=== PATIENT | male | born 1985 | race American Indian/Alaskan Native ===

== ENCOUNTER 2018-05-12 03:28 | Inpatient (IN) | payer MEDICAID ==
[2018-05-08 22:12] VITALS: BMI 29.0
[2018-05-12 09:58] LABS: BASO # 0.01 K/mm3 (0.0-2.0); BASO % 0.1 % (0.0-3.0); EOS # 0.1 (0.0-0.7); EOS % 1.1 % (1.5-5.0); GRAN # 6.64 (1.4-6.5); GRAN % 71.6 % (50.0-68.0); HEMOGLOBIN 13.5 g/dL (14.0-18.0); LYMPH % 21.5 % (22.0-35.0); MEAN CELL VOLUME 75.6 fl (80.0-105.0); MEAN CORPUSCULAR HEMOGLOBIN 25.2 pg (25.0-35.0); MEAN CORPUSCULAR HGB CONC 33.3 g/dl (31.0-37.0); MEAN PLATELET VOLUME 11.6 fl (7.0-11.0); MONO # 0.5 (0.1-0.6); MONO % 5.7 % (1.0-6.0); RBC 5.36 10^6/uL (3.5-6.1); RED CELL DISTRIBUTION WIDTH 13.7 % (11.5-14.5); WHITE BLOOD COUNT 9.3 10^3/ul (4.5-11.0)
[2018-05-12 10:02] LABS: BARBITURATES, UR NEGATIVE (NEGATIVE); BENZODIAZEPINES, UR NEGATIVE (NEGATIVE); OPIATES, UR NEGATIVE (NEGATIVE)
[2018-05-12 10:03] LABS: PHENCYCLIDINE, UR NEGATIVE (NEGATIVE)
[2018-05-12 10:04] LABS: BLOOD UREA NITROGEN 9 mg/dL (7-21); GFR NON-AFRICAN AMERICAN > 60
[2018-05-12 10:05] LABS: ALB/GLOB RATIO 1.1 (1.1-1.8); ALBUMIN 4.5 g/dL (3.0-4.8); ALT/SGPT 23 U/L (7-56); AST/SGOT 33 U/L (17-59); CALCIUM 9.5 mg/dL (8.4-10.5)
[2018-05-12 10:06] LABS: PH,URINE 6.5 (4.7-8.0); URINE APPEARANCE CLEAR (CLEAR); URINE BILIRUBIN NEGATIVE (NEGATIVE); URINE BLOOD NEGATIVE (NEGATIVE); URINE COLOR YELLOW (YELLOW); URINE GLUCOSE (UA) NEGATIVE (NEGATIVE); URINE LEUKOCYTE ESTERASE NEGATIVE Leu/uL (NEGATIVE); URINE PROTEIN NEGATIVE mg/dL (<30 mg/dL); URINE UROBILINOGEN 0.2 E.U./dL (<1 E.U./dL)
[2018-05-12] MEDS ORDERED: Magnesium Hydroxide Susp 30 ml UD PO PRN (19:01)
[2018-05-12] MEDS ORDERED: Alum-Mag Hydrox-Simethicone Susp (30 mL) PO PRN (19:01)
--- NOTE | 2018-05-12 19:06 | PCM.BM ---
<Verenice Titus - Last Filed: 05/12/18 19:03> Treatment Plan Problems - Problems identified on initial assessmt AUDITORY HALLUCINATION Date Initiated: 05/12/18 Time Initiated: 19:00 Assessment reference: NA Status: Active Priority: 1 SOCIAL ISOLATION Date Initiated: 05/12/18 Time Initiated: 19:00 Assessment reference: NA Status: Active Priority: 2 INEFFECTIVE INDV COPING Date Initiated: 05/12/18 Time Initiated: 19:00 Assessment reference: NA Status: Active Priority: 3 SELF CARE DEFICIT Date Initiated: 05/12/18 Time Initiated: 19:00 Assessment reference: NA Status: Active Priority: 4 Treatment assets and liabiliti Patient Assests: cooperative, ADL independent, physically healthy, good support system, cognitively intact Patient Liabilities: financial problems - Milieu Protocol Maintain good personal hygiene: daily Encourage regular showers, daily Remind patient to perform daily oral care, daily Assist patient to perform ADL's Maintain personal safety: every shift Educate patient to report safety concerns to staff, every shift Monitor environment for contraband/sharps Medication safety: Monitor for expected outcome, potential side effects: every shift, Assess barriers to learning: every shift, Assess readiness for medication education: every shift Discharge/Continuing Care - Education Needs Education Needs: Patient Medication, Patient Diagnosis/Disease Process, Patient Coping Skills, Patient Community resources, Patient Activities of Daily Living, Patient Nutrition, Patient Health Practices/Safety, Patient Personal Hygiene/Grooming, Patient Aftercare Safety Plan - Discharge Discharge Criteria: Tolerates medication w/o severe side effects, Free of paranoid thoughts, Normal sleep pattern, Ability to care for self, Reduction of target symptoms Discharge to:: Home <Jada Espino - Last Filed: 05/13/18 16:27> - Diagnosis (1) Unspecified psychosis Status: Acute Interventions: 05/13/18 16:28 Psychoeducation/psychotherapy Psychopharmacology/adjustment of medications as needed/ monitoring possible side effects Evaluate pt on daily basis Compliance with medications and follow up appointments Long acting medication if pt is noncompliant with pill form Suicide and homicide risk assessment and prevention, coping strategies, safety plan Relapse prevention Reduction of symptoms Improve functional status Possible assertive community treatment Cognitive behavioral therapy Family involvement Possible social skill training as outpatient (2) Bipolar 1 disorder Status: Acute Interventions: 05/13/18 16:28 Psychoeducation Psychopharmacology/adjustment of medications as needed/ monitoring possible side effects Monitor blood level of mood stabilizers Evaluate pt on daily basis Compliance with medications and follow up appointments Suicide and homicide risk assessment and prevention, coping strategies, safety plan Relapse prevention Reduction of symptoms Improve functional status Family involvement As outpatient: cognitive behavioral therapy <Deanne Knowles Y - Last Filed: 05/13/18 17:03> Family Contact Family involvement: Family/SO is involved Family contact: Patient agrees to contact Family contact name: Meri Fuentes(aunt) Family contacted how many times per week?: 2
[2018-05-12] MEDS: Divalproex 250 mg DR (BID formulation) PO SCH (19:14)
[2018-05-13 07:00] VITALS: RESP 20
[2018-05-13 08:00] LABS: HDL CHOLESTEROL 60 mg/dL (29-60)
[2018-05-13 08:11] LABS: LDL CHOLESTEROL 80 mg/dL (0-129)
[2018-05-13 08:16] LABS: FREE T4 1.37 ng/dL (0.78-2.19)
[2018-05-13] MEDS: Divalproex 250 mg DR (BID formulation) PO SCH ×2 (08:17→17:26)
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
[2018-05-13] MEDS: Oxycodone/Acetaminophen 5/325 mg Tab PO PRN ×2 (11:28→17:30)
--- NOTE | 2018-05-13 16:14 | CARD ---
APPROVED REPORT Date of service: 05/12/2018 EKG Measurement Heart [id number] <Conclusion> Sinus bradycardia
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
--- NOTE | 2018-05-13 17:12 | CP.PCM.PCO ---
<Tracie Sinclair - Last Filed: 05/13/18 17:09> Addendum Addendum: 05/13/18 17:09 Patient's chart reviewed Xray on 05-08 shows normal left foot radiographs Patient treated with Kelfex and Ancef Patient's laceration was checked with no oozing or drainage noted Podiatry Consult was added Patient on percocet with special shoe for laceration injury Full Consult note will be done in the AM <Waqar Jesus - Last Filed: 05/14/18 07:39> Attending/Attestation - Attestation I have personally seen and examined this patient.: Yes I have fully participated in the care of the patient.: Yes I have reviewed all pertinent clinical information: Yes
[2018-05-14] MEDS: Divalproex 250 mg DR (BID formulation) PO SCH ×2 (08:39→15:53)
[2018-05-14] MEDS: Oxycodone/Acetaminophen 5/325 mg Tab PO PRN (08:45)
--- NOTE | 2018-05-14 08:46 | CT ---
Date of service: 05/14/2018 PROCEDURE: CT HEAD WITHOUT CONTRAST. HISTORY: s/p fall COMPARISON: None available. TECHNIQUE: Axial computed tomography images were obtained through the head/brain without intravenous contrast. Radiation dose: Total exam DLP = 840.78 mGy-cm. This CT exam was performed using one or more of the following dose reduction techniques: Automated exposure control, adjustment of the mA and/or kV according to patient size, and/or use of iterative reconstruction technique. FINDINGS: HEMORRHAGE: No intracranial hemorrhage. BRAIN: Normal marshall-white matter differentiation and density are appreciated throughout the cerebrum and cerebellum with the brainstem appearing unremarkable as well. There is no mass effect. There is no suspicious extra-axial fluid collection and the midline brain anatomy appears diffusely unremarkable. VENTRICLES: Unremarkable. No hydrocephalus. CALVARIUM: No destructive bony lesion or displaced fracture identified including through the skullbase. PARANASAL SINUSES: Unremarkable as visualized. No significant inflammatory changes. MASTOID AIR CELLS: Unremarkable as visualized. No inflammatory changes. OTHER FINDINGS: None. IMPRESSION: Unremarkable noncontrast head CT.
--- NOTE | 2018-05-14 12:45 | CP.PCM.PN ---
Subjective - Date & Time of Evaluation Date of Evaluation: 05/14/18 Time of Evaluation: 12:42 - Subjective Subjective: Samia Dubon, PGY2, Neurology Progress Note for Dr Theodore: Patient seen and examined at bedside. No acute events overnight. Patient reports mild headache this AM. Denies nausea, vomiting, gait disturbances, blurry vision. Objective - Vital Signs/Intake and Output Vital Signs (last 24 hours): Temp Pulse Resp BP Pulse Ox 97.5 F L 52 L 20 125/72 05/14/18 06:45 05/14/18 06:45 05/14/18 06:45 05/14/18 06:45 - Medications Medications: Current Medications Al Hydrox/Mg Hydrox/Simethicone (Maalox Plus 30 Ml) 30 ml PO DAILY PRN PRN Reason: Upset Stomach Cephalexin Monohydrate (Keflex) 500 mg PO QID [facility]; Protocol Last Admin: 05/14/18 08:40 Dose: 500 mg Divalproex Sodium (Depakote Dr (*Bid*)) 250 mg PO BID [facility]; Protocol Last Admin: 05/14/18 08:39 Dose: 250 mg Lorazepam (Ativan) 2 mg IM Q6H PRN; Protocol PRN Reason: Anxiety Lorazepam (Ativan) 0.5 mg PO BID [facility]; Protocol Last Admin: 05/14/18 08:39 Dose: 0.5 mg Lorazepam (Ativan) 0.5 mg PO HS [facility]; Protocol Last Admin: 05/13/18 21:40 Dose: 0.5 mg Magnesium Hydroxide (Milk Of Magnesia) 30 ml PO DAILY PRN PRN Reason: Constipation Oxycodone/Acetaminophen (Percocet 5/325 Mg Tab) 1 tab PO Q6H PRN PRN Reason: Pain, severe (8-10) Stop: 05/16/18 10:11 Last Admin: 05/14/18 08:45 Dose: 1 tab Risperidone (Risperdal Tab) 0.5 mg PO BID [facility]; Protocol Last Admin: 05/14/18 08:39 Dose: 0.5 mg Tramadol HCl (Ultram) 50 mg PO BID PRN PRN Reason: severe pain 9/10 Last Admin: 05/14/18 10:43 Dose: 50 mg Zaleplon (Sonata) 5 mg PO HS PRN PRN Reason: Insomnia Last Admin: 05/13/18 21:39 Dose: 5 mg Ziprasidone (Geodon Cap) 20 mg PO DAILY PRN; Protocol PRN Reason: Agitation - Labs Labs: 05/12/18 04:45 05/12/18 04:45 - Additional Findings Additional findings: - Constitutional Appears: Non-toxic, No Acute Distress - Head Exam Head Exam: ATRAUMATIC, NORMOCEPHALIC - Eye Exam Eye Exam: EOMI, Normal appearance, PERRL. absent: Conjunctival injection, Nystagmus, Scleral icterus Pupil Exam: NORMAL ACCOMODATION, PERRL. absent: Fixed, Irregular, Miosis, Mydriatic, Unequal - ENT Exam ENT Exam: Mucous Membranes Moist - Neck Exam Neck exam: Positive for: Full Rom - Respiratory Exam Respiratory Exam: Clear to Auscultation Bilateral, NORMAL BREATHING PATTERN. absent: Accessory Muscle Use, Chest Wall Tenderness, Rales, Rhonchi, Wheezes, Respiratory Distress - Cardiovascular Exam Cardiovascular Exam: RRR, +S1, +S2. absent: Systolic Murmur - GI/Abdominal Exam GI & Abdominal Exam: Normal Bowel Sounds, Rigid, Soft. absent: Distended, Mass, Organomegaly, Rebound, Tenderness - Extremities Exam Extremities exam: Positive for: normal inspection. Negative for: calf tenderness, pedal edema Additional comments: left foot covered in dressing, c/d/i - patient had a laceration there few days ago, followed by podiatry. - Back Exam Back exam: NORMAL INSPECTION - Neurological Exam Neurological exam: Alert, CN II-XII Intact, Normal Gait, Oriented x3, Reflexes Normal Additional comments: finger to nose test smooth b/l, no dysmetria noted, heel to gaffney test normal, rapid alternating movements normal. - Psychiatric Exam Psychiatric exam: Normal Affect - Skin Skin Exam: Dry, Normal Color, Warm Assessment and Plan - Assessment and Plan (Free Text) Assessment: 32 year old male with PMH asthma, presents for headaches and auditory lewis ucinations for past 3 months s/p trauma: - likely post concussion syndrome, r/o seizures - Head CT negative. - f/u EEG - Toradol prn pain - Concussion protocol: get plenty of rest, avoid TV/visual stimulation - c/w Depakote - c/w psych management Discussed case with attending, Dr Theodore.
[2018-05-14] MEDS: Fluticasone Nasal 50 mcg/Spray NS SCH (15:52)
[2018-05-14] MEDS ORDERED: Albuterol HFA 90 mcg/actuation (8 g) IH PRN (16:22)
--- NOTE | 2018-05-14 16:50 | PCM.PYCHPN ---
Psychiatric Progress Note - Psychiatric Progress Note Patient seen today, length of contact: 30 minutes Patient Chief Complaint: "I feeling better" Problems Identified/Issues Discussed: Suicide/ homicide prevention, past psychiatric h/o, current psychiatric symptoms, medical problems, risk/benefits and alternatives of medications, medications compliance, coping strategies, substance abuse h/o, relapse prevention, importance of follow up with psychiatrist and therapist, discharge plan. Medical Problems: see HPI Diagnostic Results: 05/12/18 04:45 05/12/18 04:45 Lab Results 05/13/18 07:30: Triglycerides 62, Cholesterol 175, LDL Cholesterol Direct 80, HDL Cholesterol 60 05/13/18 07:30: RPR Nonreactive 05/13/18 07:30: Free T4 1.37, TSH 3rd Generation 0.73 05/12/18 06:00: Urine Opiates Screen Negative, Urine Methadone Screen Negative, Ur Barbiturates Screen Negative, Ur Phencyclidine Scrn Negative, Ur Amphetamines Screen Negative, U Benzodiazepines Scrn Negative, U Oth Cocaine Metabols Negative, U Cannabinoids Screen Negative 05/12/18 06:00: Urine Color Yellow, Urine Appearance Clear, Urine pH 6.5, Ur S pecific [place] 1.015, Urine Protein Negative, Urine Glucose (UA) Negative, Urine Ketones 40 H, Urine Blood Negative, Urine Nitrate Negative, Urine Bilirubin Negative, Urine Urobilinogen 0.2, Ur Leukocyte Esterase Negative 05/12/18 04:45: Alcohol, Quantitative < 10 05/12/18 04:45: Sodium 138, Potassium 3.6, Chloride 102, Carbon Dioxide 25, Anion Gap 15, BUN 9, Creatinine 0.9, Est GFR ( Amer) > 60, Est GFR (Non- Af Amer) > 60, Random Glucose 101, Calcium 9.5, Total Bilirubin 0.3, AST 33, ALT 23, Alkaline Phosphatase 104, Total Protein 8.5 H, Albumin 4.5, Globulin 4.0, Albumin/Globulin Ratio 1.1 05/12/18 04:45: WBC 9.3, RBC 5.36, Hgb 13.5 L, Hct 40.5 L, MCV 75.6 L, MCH 25.2, MCHC 33.3, RDW 13.7, Plt Count 209, MPV 11.6 H, Gran % 71.6 H, Lymph % (Auto) 21.5 L, [place] % (Auto) 5.7, Eos % (Auto) 1.1 L, Baso % (Auto) 0.1, Gran # 6.64 H, Lymph # (Auto) 2.0, [place] # (Auto) 0.5, Eos # (Auto) 0.1, Baso # (Auto) 0.01 DSM 5 Symptoms Update: shortly patient is 32-year-old Male with not known previous psychiatric history, not known previous suicidal attempts, pt brought himself to the hospital to check and "fix what is going on in my mouth", pt presented to be disorganized in his thoughts, behavior, pt reported hearing voices, saying "male and female are constantly talking", pt also c/o headaches since fall 4-5 months ago, pt also had hurt his left foot saying "stop on glass", but as per family was not able to function, family also expressed concerns about pt's symptoms. pt signed consent for treatment, needed med management, observation, stabilization. pt was seen today next to the nursing station. affect was brighter, pt denied any voices. pt slept better. pt was preoccupied with pain meds. as per staff report pt is visible in the unit. pt got CT of the head which was WNL, no result of EEG yet. social patient tolerates medications well, no side effects observed or reported, aims 0, no EPS. Impression: Psychosis NOS Rule out schizophrenia Substance-induced psychosis Medication Change: Yes Medical Record Reviewed: Yes Consults ordered or reviewed: neurology consult appreciated toradol started, pt refused, does not want to be on injection tramadol started po Mental Status Examination - Cognitive Function Orientation: Person, Place, Situation Memory: Impaired Attention: Poor Concentration: Poor Association: Loose Fund of Knowledge: Poor - Mood Mood: Neutral - Affect Affect: Flat - Formal Thought Process Formal Thought Process: Hallucinations, Delusions, Paranoia, Loosening of associations - Suicidal Ideation Suicidal Ideation: No - Homicidal Ideation Homicidal Ideation: No Goal/Treatment Plan - Goal/Treatment Plan Need for Continued Stay: Remain at risks for inpatient hospitalization, Severe depression anxiety, Discharge may exacerbated symptoms, Severe functional impairment Progress Toward Problem(s) and Goals/Treatment Plan: Milieu/structure/supportive therapy Medical consult appreciated, see medical team note for more detailed info podiatry consult as per medical team neurology consult r/o seizure, h/o head trauma, voices, discussed with , input appreciated risperdal for psychosis depakote for mood stabilization and headaches prophylaxis SW consultation for discharge plan and social issues Med management (specify the name, doses, plan to titrate or wean it off) Family involvement Follow up on labs Will monitor closely Pt was educated about risk/benefits and alternatives of medications, coping strategies (safety plan, suicide prevention), relapse prevention, importance of follow up with psychiatrist and therapist, stay away from drugs/alcohol/smoking meds confirmed and resumed: Albuterol HFA [Ventolin HFA 90 mcg/actuation (8 g)] 1 puff INH PRN PRN Cephalexin [Keflex] 500 mg PO QID oxyCODONE/Acetaminophen [Percocet 5/325 mg Tab] Estimated Date of D/C: 05/17/18
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
[2018-05-15] MEDS: Oxycodone/Acetaminophen 5/325 mg Tab PO PRN ×2 (05:27→11:29)
[2018-05-15 06:58] VITALS: BP 122/90; PULSE 58; TEMP 97.3
[2018-05-15] MEDS: Divalproex 250 mg DR (BID formulation) PO SCH (08:23)
[2018-05-15] MEDS: Fluticasone Nasal 50 mcg/Spray NS SCH (08:23)
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
--- NOTE | 2018-05-15 18:59 | PCM.PYCHDC ---
Mental Status Examination - Mental Status Examination Orientation: Person, Place, Situation, Time Memory: Intact Mood: Neutral Affect: Broad (mood congruent) Speech: Appropriate Attention: WNL Concentration: WNL Association: WNL Fund of Knowledge: WNL Formal Thought Process: No Impairment Description of patient's judgement and insight: Pt has improved insight into mental and medical illness, pt was compliant with medications and unit rules and regulations, pt was going to groups, was calm, cooperative, socially appropriate, no behavioral incidents, no agitation, no aggression. Psychotic Thoughts and Behaviors: Pt denied v/a/t hallucinations, denied paranoid ideations, pt does not appear to be psychotic, and thought process is goal directed. Suicidal Ideation: No Current Homicidal Ideation?: No Plan: pt adamantly denied thoughts of harming self or others denied intent or plan. Discharge Summary - Discharge Note Reason for Hospitalization: pt was admitted for psychosis, inability to function, disorganized thoughts and behavior. Psychiatric History (includes Medical, Family, Personal Hx): see HPI Laboratory Data: 05/12/18 04:45 05/12/18 04:45 Lab Results 05/13/18 07:30: Triglycerides 62, Cholesterol 175, LDL Cholesterol Direct 80, HDL Cholesterol 60 05/13/18 07:30: RPR Nonreactive 05/13/18 07:30: Free T4 1.37, TSH 3rd Generation 0.73 05/12/18 06:00: Urine Opiates Screen Negative, Urine Methadone Screen Negative, Ur Barbiturates Screen Negative, Ur Phencyclidine Scrn Negative, Ur Amphetamines Screen Negative, U Benzodiazepines Scrn Negative, U Oth Cocaine Metabols Negative, U Cannabinoids Screen Negative 05/12/18 06:00: Urine Color Yellow, Urine Appearance Clear, Urine pH 6.5, Ur Spe cific [place] 1.015, Urine Protein Negative, Urine Glucose (UA) Negative, Urine Ketones 40 H, Urine Blood Negative, Urine Nitrate Negative, Urine Bilirubin Negative, Urine Urobilinogen 0.2, Ur Leukocyte Esterase Negative 05/12/18 04:45: Alcohol, Quantitative < 10 05/12/18 04:45: Sodium 138, Potassium 3.6, Chloride 102, Carbon Dioxide 25, Anion Gap 15, BUN 9, Creatinine 0.9, Est GFR ( Amer) > 60, Est GFR (Non- Af Amer) > 60, Random Glucose 101, Calcium 9.5, Total Bilirubin 0.3, AST 33, ALT 23, Alkaline Phosphatase 104, Total Protein 8.5 H, Albumin 4.5, Globulin 4.0, Albumin/Globulin Ratio 1.1 05/12/18 04:45: WBC 9.3, RBC 5.36, Hgb 13.5 L, Hct 40.5 L, MCV 75.6 L, MCH 25.2, MCHC 33.3, RDW 13.7, Plt Count 209, MPV 11.6 H, Gran % 71.6 H, Lymph % (Auto) 21.5 L, [place] % (Auto) 5.7, Eos % (Auto) 1.1 L, Baso % (Auto) 0.1, Gran # 6.64 H, Lymph # (Auto) 2.0, [place] # (Auto) 0.5, Eos # (Auto) 0.1, Baso # (Auto) 0.01 Vital Signs Temp Pulse Resp BP 05/15/18 06:57 97.3 F L 58 L 20 122/90 05/14/18 15:30 63 120/81 05/14/18 06:45 97.5 F L 52 L 20 125/72 05/13/18 16:00 49 L 116/81 05/13/18 06:58 98.2 F 60 20 129/84 05/12/18 16:00 74 133/84 Consultations:: List each consultation separately and include: 1. Reason for request. 2. Findings. 3. 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 Description of specific treatment plan utilized for patients during their course of treatmen. 2. Summarize the time- course for resolution of acute symptoms and/or regressed behaviors. 3. Describe issues identified and worked on during hospitalization. 4. Describe medication utilized. 5. Describe medical problems identified and treated. 6. Reassessment of suicide risk Summary of Hospital Course: shortly patient is 32-year-old Male with not known previous psychiatric history, not known previous suicidal attempts, pt brought himself to the hospital to check and "fix what is going on in my mouth", pt presented to be disorganized in his thoughts, behavior, pt reported hearing voices, saying "male and female are constantly talking", pt also c/o headaches since fall 4-5 months ago, pt also had hurt his left foot saying "stop on glass", but as per family was not able to function, family also expressed concerns about pt's symptoms. pt signed consent for treatment, needed med management, observation, stabilization. initially pt presented with marginal personal hygiene, oddly related, but not acutely psychotic, good ADLs. pt came to the hospital for evaluation of his headaches "I feel like my head is splitting." patient presented to be psychotic, reported voices, obviously related. Please see initial notes for more detailed information 05/12/18 04:45 05/12/18 04:45 Lab Results 05/13/18 07:30: Triglycerides 62, Cholesterol 175, LDL Cholesterol Direct 80, HDL Cholesterol 60 05/13/18 07:30: Free T4 1.37, TSH 3rd Generation 0.73 05/12/18 06:00: Urine Opiates Screen Negative, Urine Methadone Screen Negative, Ur Barbiturates Screen Negative, Ur Phencyclidine Scrn Negative, Ur Amphetamines Screen Negative, U Benzodiazepines Scrn Negative, U Oth Cocaine Metabols Negative, U Cannabinoids Screen Negative 05/12/18 06:00: Urine Color Yellow, Urine Appearance Clear, Urine pH 6.5, Ur Specific [place] 1.015, Urine Protein Negative, Urine Glucose (UA) Negative, Urine Ketones 40 H, Urine Blood Negative, Urine Nitrate Negative, Urine Bilirubin Negative, Urine Urobilinogen 0.2, Ur Leukocyte Esterase Negative 05/12/18 04:45: Alcohol, Quantitative < 10 05/12/18 04:45: Sodium 138, Potassium 3.6, Chloride 102, Carbon Dioxide 25, Anion Gap 15, BUN 9, Creatinine 0.9, Est GFR ( Amer) > 60, Est GFR (Non- Af Amer) > 60, Random Glucose 101, Calcium 9.5, Total Bilirubin 0.3, AST 33, ALT 23, Alkaline Phosphatase 104, Total Protein 8.5 H, Albumin 4.5, Globulin 4.0, Albumin/Globulin Ratio 1.1 05/12/18 04:45: WBC 9.3, RBC 5.36, Hgb 13.5 L, Hct 40.5 L, MCV 75.6 L, MCH 25.2, MCHC 33.3, RDW 13.7, Plt Count 209, MPV 11.6 H, Gran % 71.6 H, Lymph % (Auto) 21.5 L, [place] % (Auto) 5.7, Eos % (Auto) 1.1 L, Baso % (Auto) 0.1, Gran # 6.64 H, Lymph # (Auto) 2.0, [place] # (Auto) 0.5, Eos # (Auto) 0.1, Baso # (Auto) 0.01 Vital Signs Temp Pulse Resp BP 05/13/18 06:58 98.2 F 60 20 129/84 05/12/18 16:00 74 133/84 patient was initiated on Risperdal which she tolerated very well, denied any side effects, AIMS 0, no EPS. Patient was seen by medical team, neurology team, podiatry team. please see notes for more detailed information Over the course of this hospitalization pt was attending groups, pt also had medication management, had therapeutic milieu. Overall pt improved significantly, psychotic symptoms improved, patient was calm and corporative, was attending groups, no agitation or aggression. Patient requested to be discharged, patient denied being depressed, denied any psychotic symptoms, patient was willing to follow up with outpatient provider. not appeared to be psychotic, denied been anxious, pt is not in imminent danger to self or others pt will be followed up [place] [facility] [place] information about follow up appointment, time and address provided to the pt, it is patient responsibility to follow up with outpatient clinic, PMD as well as specialists (see note for more detailed information). In case pt will need to obtain results of studies pending at discharge pt was provided with contact information of Psychiatric Inpatient unit [phone] as well as Medical Record Department [phone]. Naltrexone treatment not indicated at this time. Counseling about smoking and alcohol cessation provided AA meetings as well as smoking cessation treatment program information was provided by the pt was provided with prescriptions for all of medications (please see medication reconciliation form) Pt was educated about safety plan in case of worsening of symptoms or in case of suicidal or homicidal ideation call 911 or go to the nearest ER, also was e ducated to take meds as prescribed and stay away from drugs, pt verbalized understanding. - Diagnosis (1) Unspecified psychosis Status: Acute Priority: Medium (2) Schizophreniform disorder Status: Acute Priority: Medium - Final Diagnosis (DSM 5) Condition upon Discharge: GOOD Disposition: HOME/ ROUTINE Follow-up Treatment Plan: pt will be followed up at [facility] information about follow up appointment, time and address provided to the pt, it is patient responsibility to follow up with outpatient clinic, PMD as well as specialists (see SW note for more detailed information). Prescriptions/Medication Reconciliation: Albuterol HFA [Ventolin HFA 90 mcg/actuation (8 g)] 2 puff IH [id number] PRN #1 inhaler PRN Reason: Shortness Of Breath Cephalexin [Keflex] 500 mg PO QID #32 cap Divalproex [Depakote DR (*BID*)] 250 mg PO BID #28 tcp Fluticasone Nasal [Flonase] 1 actuation NS DAILY #1 spr risperiDONE [RisperDAL Tab] 1 mg PO HS #14 tab Zaleplon [Sonata] 5 mg PO HS PRN #7 cap PRN Reason: Insomnia - Smoking Cessation Smoking Cessation Medication prescribed: No Reason for not providing: denied smoking - Antipsychotic Medications Pt discharged on 2 or more routine antipsychotic medications: No
== END 2018-05-15 12:00 | disposition home or self-care (01) | DRG 430 ==
LOC: ED 03:28 → PSYC 09:54
PROVIDERS: ADMIT Psychiatry & Neurology Psychiatry; ATTEND Psychiatry & Neurology Psychiatry
PROC: GZ3ZZZZ Medication Management (ICD-10-PCS; principal; 2018-05-12)
DX: F20.81 Schizophreniform disorder (principal); J45.909 Unspecified asthma, uncomplicated; G47.00 Insomnia, unspecified; S91.312D Laceration without foreign body, left foot, subsequent encounter; W25.XXXD Contact with sharp glass, subsequent encounter

== ENCOUNTER 2018-05-16 20:49 | Inpatient (IN) | payer MEDICAID ==
[2018-05-16 20:50] VITALS: BMI 29.0
[2018-05-16] MEDS ORDERED: Vancomycin 500 mg Inj IVPB STA (21:13)
[2018-05-16] MEDS ORDERED: Oxycodone/Acetaminophen 5/325 mg Tab PO STA (21:13)
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
[2018-05-16 22:06] LABS: BASO # 0.02 K/mm3 (0.0-2.0); BASO % 0.3 % (0.0-3.0); EOS # 0.1 (0.0-0.7); EOS % 1.6 % (1.5-5.0); GRAN # 4.12 (1.4-6.5); GRAN % 59.3 % (50.0-68.0); HEMOGLOBIN 12.9 g/dL (14.0-18.0); LYMPH # 2.2 (1.2-3.4); LYMPH % 31.3 % (22.0-35.0); MEAN CELL VOLUME 75.9 fl (80.0-105.0); MEAN CORPUSCULAR HEMOGLOBIN 25.3 pg (25.0-35.0); MEAN CORPUSCULAR HGB CONC 33.3 g/dl (31.0-37.0); MEAN PLATELET VOLUME 10.9 fl (7.0-11.0); MONO # 0.5 (0.1-0.6); MONO % 7.5 % (1.0-6.0); RBC 5.1 10^6/uL (3.5-6.1); RED CELL DISTRIBUTION WIDTH 13.7 % (11.5-14.5); WHITE BLOOD COUNT 6.9 10^3/ul (4.5-11.0)
[2018-05-16 22:13] LABS: BLOOD UREA NITROGEN 13 mg/dL (7-21); CALCIUM 9.4 mg/dL (8.4-10.5); GFR NON-AFRICAN AMERICAN > 60
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
[2018-05-16] MEDS ORDERED: Albuterol-Ipratrop 3 mg / 0.5 (3 ml) UD IH PRN (23:40)
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
[2018-05-17] MEDS: Morphine 2 mg/ml ISec IVP PRN (08:39)
[2018-05-17 09:43] LABS: ALB/GLOB RATIO 1.1 (1.1-1.8); ALBUMIN 4.3 g/dL (3.0-4.8); ALT/SGPT 28 U/L (7-56); AST/SGOT 34 U/L (17-59); BLOOD UREA NITROGEN 12 mg/dL (7-21); CALCIUM 9.5 mg/dL (8.4-10.5); GFR NON-AFRICAN AMERICAN > 60; HEMOGLOBIN 13.3 g/dL (14.0-18.0); MEAN CELL VOLUME 75.7 fl (80.0-105.0); MEAN CORPUSCULAR HEMOGLOBIN 24.8 pg (25.0-35.0); MEAN CORPUSCULAR HGB CONC 32.8 g/dl (31.0-37.0); MEAN PLATELET VOLUME 10.6 fl (7.0-11.0); RBC 5.36 10^6/uL (3.5-6.1); RED CELL DISTRIBUTION WIDTH 13.8 % (11.5-14.5); WHITE BLOOD COUNT 6.7 10^3/ul (4.5-11.0)
--- NOTE | 2018-05-17 10:23 | RAD ---
Date of service: 05/17/2018 PROCEDURE: Left Foot Radiographs. HISTORY: Pain and swelling COMPARISON: 05/08/2018. FINDINGS: BONES: Normal. No fracture. JOINTS: Normal. SOFT TISSUES: Plantar soft tissue swelling. No associated osseous or articular abnormalities. No visulaized radiopaque/visualized foreign body. OTHER FINDINGS: None. IMPRESSION: Soft tissue swelling without acute articular or osseous abnormality.
--- NOTE | 2018-05-17 10:39 | CP.PCM.PN ---
<Boo Reese - Last Filed: 05/17/18 16:13> Subjective - Date & Time of Evaluation Date of Evaluation: 05/17/18 Time of Evaluation: 10:05 - Subjective Subjective: Boo Reese PGY2 IM Progress Note for Dr. Jesus Patient was seen and examiend at bedside. He is complaining of a headache, but is refusing medication at this time. His foot is wrapped by podiatry. He currently denies any headaches, vision/hearing changes, dizziness, numbness/tingling. Objective - Vital Signs/Intake and Output Vital Signs (last 24 hours): Temp Pulse Resp BP Pulse Ox 98.1 F 57 L 20 124/83 96 05/17/18 06:00 05/17/18 06:00 05/17/18 06:00 05/17/18 06:00 05/17/18 06:00 - Medications Medications: Current Medications Albuterol/Ipratropium (Duoneb 3 Mg/0.5 Mg (3 Ml) Ud) 3 ml IH Q6 PRN PRN Reason: Wheezing Enoxaparin Sodium (Lovenox) 40 mg SC DAILY BONNY; Protocol Ceftriaxone Sodium (Rocephin 1 Gram Ivpb) 1 gm in 100 mls @ 100 mls/hr IVPB DAILY BONNY; Protocol Vancomycin HCl (Vancomycin 1gm) 1 gm in 250 mls @ 167 mls/hr IVPB DAILY BONNY; Protocol Morphine Sulfate (Morphine) 2 mg IVP Q6 PRN PRN Reason: Pain, moderate (4-7) Last Admin: 05/17/18 08:39 Dose: 2 mg - Labs Labs: 05/17/18 09:00 05/17/18 09:00 - Additional Findings Additional findings: - Constitutional Appears: No Acute Distress - Head Exam Head Exam: ATRAUMATIC, NORMOCEPHALIC - ENT Exam ENT Exam: Mucous Membranes Moist - Respiratory Exam Respiratory Exam: Clear to Auscultation Bilateral, NORMAL BREATHING PATTERN. absent: Wheezes, Respiratory Distress - Cardiovascular Exam Cardiovascular Exam: RRR, +S1, +S2 - GI/Abdominal Exam GI & Abdominal Exam: Normal Bowel Sounds, Soft - Extremities Exam Extremities exam: Negative for: calf tenderness, pedal edema Additional comments: dressing c/d/i over right foot, surgical shoe in place - Neurological Exam Neurological exam: Alert - Psychiatric Exam Psychiatric exam: Normal Affect, Normal Mood Assessment and Plan - Assessment and Plan (Free Text) Assessment: 32 yo male with a PMH of asthma and psychosis who presents to the ED complaining of left foot pain s/p stepping on glass on 05-08-18 and having his foot laceration sutured by podiatry. Plan: Left foot cellulitis s/p laceration suture, with possible underlying abscess - blood and wound cultures ordered - started on Vanco and Rocephin empirically - morphine 2mg IVP q6 for pain control - podiatry consulted, recs appreciated - ID consulted, recs appreciated Asthma - duonebs PRN Psychosis - Psych consulted, recs appreciated Ppx - regular diet - pepcid for GI ppx - lovenox for DVT ppx Patient was examined and discussed with attending, Dr. Edin Reese PGY2 <Waqar Jesus - Last Filed: 05/17/18 17:21> Objective - Vital Signs/Intake and Output Vital Signs (last 24 hours): Temp Pulse Resp BP Pulse Ox 97.9 F 61 20 124/83 98 05/17/18 14:00 05/17/18 14:00 05/17/18 14:00 05/17/18 14:00 05/17/18 14:00 - Medications Medications: Current Medications Albuterol/Ipratropium (Duoneb 3 Mg/0.5 Mg (3 Ml) Ud) 3 ml IH Q6 PRN PRN Reason: Wheezing Divalproex Sodium (Depakote Dr (*Bid*)) 250 mg PO BID BONNY; Protocol Enoxaparin Sodium (Lovenox) 40 mg SC DAILY BONNY; Protocol Famotidine (Pepcid) 20 mg PO DAILY BONNY Ceftriaxone Sodium (Rocephin 1 Gram Ivpb) 1 gm in 100 mls @ 100 mls/hr IVPB DAILY BONNY; Protocol Last Admin: 05/17/18 16:35 Dose: 100 mls/hr Vancomycin HCl (Vancomycin 1gm) 1 gm in 250 mls @ 167 mls/hr IVPB DAILY BONNY; Protocol Last Admin: 05/17/18 16:35 Dose: 167 mls/hr Lorazepam (Ativan) 0.5 mg PO HS BONNY; Protocol Morphine Sulfate (Morphine) 2 mg IVP Q6 PRN PRN Reason: Pain, moderate (4-7) Last Admin: 05/17/18 08:39 Dose: 2 mg Risperidone (Risperdal Tab) 1 mg PO AMHS BONNY; Protocol Zaleplon (Sonata) 5 mg PO HS PRN PRN Reason: Insomnia - Labs Labs: 05/17/18 09:00 05/17/18 09:00 Attending/Attestation - Attestation I have personally seen and examined this patient.: Yes I have fully participated in the care of the patient.: Yes I have reviewed all pertinent clinical information, including history, physical exam and plan: Yes Notes (Text): 05/17/18 17:16 32 year old male wiht past medical history of asthma and psychosis who presents with left foot pain. He stepped on glass few days prior and was seen by podiatry for foot laceration which was sutured. He was discharged home with antibiotics and pain medication. Now presents with left foot swelling and erythema. Patient is afebrile without leukocytosis. Xray showed soft tissue swelling along left medial ascpect of left midfoot. Continue with wound care as per podiatry. Continue with crutches and nonweightbearing to left foot per podiatry. Continue with iv antibiotics as per ID. Psychiatry follow up requested as well. Waqar Jesus MD Hospitalist.
--- NOTE | 2018-05-17 11:49 | CP.PCM.PN ---
Subjective - Date & Time of Evaluation Date of Evaluation: 05/17/18 Time of Evaluation: 11:43 - Subjective Subjective: Podiatry progress note for Dr. Bunch: 32 yo male seen and evaluated at bedside for a left foot laceration with intact sutures. He has a history of two weeks ago stepping on glass and having his foot sutured in the [place] ED. Patient is AAOx3 and NAD. States his foot has appeared less swollen and that he has been ambulating on his foot all night. States he is in minimal pain but would like some more pain medication. Denies N/V/F/C/SOB/CP/pain in posterior calf and has no other pedal complaints at this time. Objective - Vital Signs/Intake and Output Vital Signs (last 24 hours): Temp Pulse Resp BP Pulse Ox 98.1 F 57 L 20 124/83 96 05/17/18 06:00 05/17/18 06:00 05/17/18 06:00 05/17/18 06:00 05/17/18 06:00 - Medications Medications: Current Medications Albuterol/Ipratropium (Duoneb 3 Mg/0.5 Mg (3 Ml) Ud) 3 ml IH Q6 PRN PRN Reason: Wheezing Divalproex Sodium (Depakote Dr (*Bid*)) 250 mg PO BID BONNY; Protocol Enoxaparin Sodium (Lovenox) 40 mg SC DAILY BONNY; Protocol Ceftriaxone Sodium (Rocephin 1 Gram Ivpb) 1 gm in 100 mls @ 100 mls/hr IVPB DAILY BONNY; Protocol Vancomycin HCl (Vancomycin 1gm) 1 gm in 250 mls @ 167 mls/hr IVPB DAILY BONNY; Protocol Lorazepam (Ativan) 0.5 mg PO HS BONNY; Protocol Morphine Sulfate (Morphine) 2 mg IVP Q6 PRN PRN Reason: Pain, moderate (4-7) Last Admin: 05/17/18 08:39 Dose: 2 mg Risperidone (Risperdal Tab) 1 mg PO AMHS BONNY; Protocol Zaleplon (Sonata) 5 mg PO HS PRN PRN Reason: Insomnia - Labs Labs: 05/17/18 09:00 05/17/18 09:00 - Constitutional Appears: Well, Non-toxic, No Acute Distress - Head Exam Head Exam: ATRAUMATIC, NORMOCEPHALIC - Extremities Exam Additional comments: LLE focused Vasc: DP and PT pulses 2/4 and palpable; temp gradient warm to warm from proximal to distal; cap refill <3 seconds to all digits; mild edema present about the medial arch where laceration and sutures present Derm: previous laceration site with intact sutures at the medial arch; erythema present periwound; sutures intact; mild fluctuance present adjacent to the laceration site and about the medial arch; no pus present; no drainage present; no clinical signs of infection; no streaking Ortho: pain along laceration site; no other gross pathology present Neuro: gross and protective sensation intact - Neurological Exam Neurological Exam: Alert, Awake, Oriented x3 - Psychiatric Exam Psychiatric exam: Normal Affect, Normal Mood Assessment and Plan - Assessment and Plan (Free Text) Assessment: 32 yo male seen and evaluated in the ED for left medial arch laceration with adjacent swelling and intact sutures Plan: Patient seen and evaluated Discussed in detail with Dr. Bunch Charts and labs reviewed - afebrile and absent leukocytosis X-ray reviewed - normal appearance, no bony pathology, evidence of soft tissue swelling along the medial aspect of the left midfoot Dressing taken down and packing removed and minimal drainage appreciated Swelling down and erythema down Redressed with steristrip across site where suture removed and dry sterile dressing Instructed patient that much of the swelling and redness may be coming from him ambulating on his left foot as his laceration site is where a lot of his gait goes through - even though he has been wearing the surgical shoe it does not provide relief from pressure in the area Discussed with using crutches and nonweightbearing to the left foot as much as possible to help with healing and to reduce swelling and redness Patient stable to be discharged from podiatry standpoint and go home on antibiotics Can follow up with wound center at [place] for suture removal and monitoring of swelling and redness periwound Podiatry will follow patient while in house
[2018-05-17] MEDS: cefTRIAXone 1 gm 1 GM/100 ML BAG IVPB SCH (16:35)
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
[2018-05-17] MEDS: Vancomycin 1gm in NS 250ml 1 GM/250 ML BAG IVPB SCH (17:50)
[2018-05-17] MEDS: Divalproex 250 mg DR (BID formulation) PO SCH (18:09)
[2018-05-17] MEDS: Enoxaparin 40 mg Syringe SC SCH (18:09)
--- NOTE | 2018-05-17 23:12 | CON ---
DATE: 05/17/2018 HISTORY OF PRESENT ILLNESS: Patient is a 32-year-old male with a history of likely schizophrenia with at least one prior psychiatric hospitalization, recently discharged from Psychiatric Unit, [facility] two days ago where he was treated for disorganization, delusions and hallucinations, who is medically admitted on 05/16/2018 for an infected wound. Psychiatry was asked to consult due to patient's notable delusions noted on the unit. Specifically patient feels that he has a chip drilled into his head and feels that his hair has been falling out. Patient has been calm and cooperative on the unit. It was confirmed by admitting staff notes and speaking with staff as well as speaking with patient and patient is currently very delusional, though he is not hallucinating. He is presently in some anxiety and distress over this belief that he has a chip drilled into his head, patient feels that his hair has been falling out and this chip is very sensitive to electronic devices and if he gets too closer to electronic devices, he gets shock. Patient reports that he has had this chip in his head for the last two months and it hurts very badly and again caused him to have a lot of headache that he is experiencing right now. Patient is not forthcoming about taking his psychiatric medications and does not appear to want another Psychiatric admission that the provider strongly recommended. He seems open to the idea of refilling discharge medications in the Psychiatric Unit, Risperdal 1 mg at bedtime, Sonata 5 at bedtime, and Depakote 250 b.i.d. at this time. Presently, he is fairly coherent, though not logical and presents as cooperative, though oddly related. Insight and judgement are poor at this time. PSYCHIATRIC HISTORY: As noted above. Patient denies any history of suicide attempts. SOCIAL HISTORY: Patient was born and raised in [place]. He is single. He has not kids. He lives with his mother and aunt. Mother's number is [phone]. Patient is unemployed. Denies any drugs or alcohol issues. MEDICATIONS: Patient is not taking any relevant psychiatric medications on the relevant medical floor. IMPRESSION: Schizophrenia. RECOMMENDATIONS: We will restart Risperdal 1 mg at bedtime, Sonata 5 mg at bedtime p.r.n. and Depakote 250 b.i.d. I strongly recommend Psychiatric hospitalization as patient is not agreeable, he should be screened. Diana Javed MD
[2018-05-18 07:24] LABS: HEMOGLOBIN 13.4 g/dL (14.0-18.0); MEAN CELL VOLUME 75.9 fl (80.0-105.0); MEAN CORPUSCULAR HEMOGLOBIN 24.8 pg (25.0-35.0); MEAN CORPUSCULAR HGB CONC 32.7 g/dl (31.0-37.0); MEAN PLATELET VOLUME 10.8 fl (7.0-11.0); RBC 5.4 10^6/uL (3.5-6.1); WHITE BLOOD COUNT 4.8 10^3/ul (4.5-11.0)
[2018-05-18] MEDS: Morphine 2 mg/ml ISec IVP PRN ×2 (07:37→15:52)
[2018-05-18 08:11] LABS: ALB/GLOB RATIO 1.1 (1.1-1.8); ALT/SGPT 21 U/L (7-56); AST/SGOT 26 U/L (17-59); BLOOD UREA NITROGEN 14 mg/dL (7-21); CALCIUM 9.2 mg/dL (8.4-10.5); GFR NON-AFRICAN AMERICAN > 60
[2018-05-18 09:04] VITALS: O2SAT 99
[2018-05-18] MEDS: Divalproex 250 mg DR (BID formulation) PO SCH ×2 (09:57→17:38)
[2018-05-18] MEDS: Enoxaparin 40 mg Syringe SC SCH (09:57)
[2018-05-18] MEDS: Vancomycin 1gm in NS 250ml 1 GM/250 ML BAG IVPB SCH (10:00)
--- NOTE | 2018-05-18 12:03 | CP.PCM.PN ---
Subjective - Date & Time of Evaluation Date of Evaluation: 05/18/18 Time of Evaluation: 12:00 - Subjective Subjective: Podiatry progress note for Dr. Bunch: 32 yo male patient seen and evaluated at bedside for left foot pain and swelling secondary to laceration. Patient is resting in bed comfortably. 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 He notes that he continues to walk on his foot daily and thinks it is contributing to the swelling of his left foot. Denies N/V/F/SOB/CP. Denies any other pedal complaints at this time. Objective - Vital Signs/Intake and Output Vital Signs (last 24 hours): Temp Pulse Resp BP Pulse Ox 98.2 F 58 L 20 121/83 99 05/18/18 06:00 05/18/18 06:00 05/18/18 06:00 05/18/18 06:00 05/18/18 06:00 Intake and Output: 05/18/18 05/18/18 06:59 18:59 Intake Total 180 Balance 180 - Medications Medications: Current Medications Albuterol/Ipratropium (Duoneb 3 Mg/0.5 Mg (3 Ml) Ud) 3 ml IH Q6 PRN PRN Reason: Wheezing Divalproex Sodium (Depjohn Dr (*Bid*)) 250 mg PO BID BONNY; Protocol Last Admin: 05/18/18 09:57 Dose: 250 mg Enoxaparin Sodium (Lovenox) 40 mg SC DAILY BONNY; Protocol Last Admin: 05/18/18 09:57 Dose: 40 mg Famotidine (Pepcid) 20 mg PO DAILY BONNY Last Admin: 05/18/18 09:58 Dose: 20 mg Ceftriaxone Sodium (Rocephin 1 Gram Ivpb) 1 gm in 100 mls @ 100 mls/hr IVPB DAILY BONNY; Protocol Last Admin: 05/17/18 16:35 Dose: 100 mls/hr Vancomycin HCl (Vancomycin 1gm) 1 gm in 250 mls @ 167 mls/hr IVPB DAILY BONNY; Protocol Last Admin: 05/18/18 10:00 Dose: 167 mls/hr Lorazepam (Ativan) 0.5 mg PO HS BONNY; Protocol Last Admin: 05/18/18 03:09 Dose: Not Given Morphine Sulfate (Morphine) 2 mg IVP Q6 PRN PRN Reason: Pain, moderate (4-7) Last Admin: 05/18/18 07:37 Dose: 2 mg Risperidone (Risperdal Tab) 1 mg PO [facility]; Protocol Last Admin: 05/18/18 09:58 Dose: 1 mg Zaleplon (Sonata) 5 mg PO HS PRN PRN Reason: Insomnia - Labs Labs: 05/18/18 06:45 05/18/18 06:45 - Constitutional Appears: Well, Non-toxic, No Acute Distress - Head Exam Head Exam: ATRAUMATIC, NORMOCEPHALIC - Extremities Exam Additional comments: LLE focused exam: Vasc: DP and PT pulses 2/4, temp gradient warm to warm from proximal to distal, cap refill <3 seconds to all digits, mild edema present about the medial arch where laceration and sutures are located Derm: previous laceration site with intact sutures at the medial arch; erythema present periwound, mild erythema periwound, no purulence, no malodor, no drainage present, no clinical signs of infection Ortho: tenderness to palpation of laceration site Neuro: gross and protective sensation intact - Neurological Exam Neurological Exam: Alert, Awake Assessment and Plan - Assessment and Plan (Free Text) Assessment: 32 yo male seen and evaluated for left foot pain with edema secondary to laceration Plan: Patient seen and evaluated and plan discussed in detail with Dr. Bunch Chart, labs, and vitals reviewed; afebrile, absent leukocytosis Sutures left intact to left foot and dressed with DSD L foot x-ray (05/17); soft tissue swelling without acute articular and osseous abnormality Patient instructed to remain NWB with crutches to left lower extremity to help reduce swelling to plantar midfoot Patient encouraged to elevate lower extremity while resting in bed Patient instructed to continue wearing surgical shoe at all times Patient stable for D/C on PO antibiotics at this time from podiatry stand point Patient to follow up in [place] [facility] for suture removal and for continued monitoring of laceration site Podiatry will continue to follow while in house
[2018-05-18] MEDS: cefTRIAXone 1 gm 1 GM/100 ML BAG IVPB SCH (12:51)
[2018-05-18 15:29] VITALS: BP 121/54; PULSE 60; RESP 18; TEMP 98
--- NOTE | 2018-05-18 16:17 | CP.PCM.DIS ---
Provider - Provider Date of Admission: 05/16/18 22:44 Attending physician: Waqar Jesus MD Consults: ID Podiatry Psych Time Spent in preparation of Discharge (in minutes): 70 Hospital Course - Lab Results Lab Results: Micro Results 05/16/18 21:41 Blood-Venous Blood Culture - Preliminary NO GROWTH AFTER 24 HOURS 05/16/18 21:15 Blood-Venous Blood Culture - Preliminary NO GROWTH AFTER 24 HOURS 05/17/18 09:43 Foot - Left Gram Stain - Final Most Recent Lab Values WBC 4.8 10^3/ul (4.5-11.0) D 05/18/18 06:45 RBC 5.40 10^6/uL (3.5-6.1) 05/18/18 06:45 Hgb 13.4 g/dL (14.0-18.0) L 05/18/18 06:45 Hct 41.0 % (42.0-52.0) L 05/18/18 06:45 MCV 75.9 fl (80.0-105.0) L 05/18/18 06:45 MCH 24.8 pg (25.0-35.0) L 05/18/18 06:45 MCHC 32.7 g/dl (31.0-37.0) 05/18/18 06:45 RDW 14.0 % (11.5-14.5) 05/18/18 06:45 Plt Count 232 10^3/uL (120.0-450.0) 05/18/18 06:45 MPV 10.8 fl (7.0-11.0) 05/18/18 06:45 Gran % 59.3 % (50.0-68.0) 05/16/18 21:41 Lymph % (Auto) 31.3 % (22.0-35.0) 05/16/18 21:41 [place] % (Auto) 7.5 % (1.0-6.0) H 05/16/18 21:41 Eos % (Auto) 1.6 % (1.5-5.0) 05/16/18 21:41 Baso % (Auto) 0.3 % (0.0-3.0) 05/16/18 21:41 Gran # 4.12 (1.4-6.5) 05/16/18 21:41 Lymph # (Auto) 2.2 (1.2-3.4) 05/16/18 21:41 [place] # (Auto) 0.5 (0.1-0.6) 05/16/18 21:41 Eos # (Auto) 0.1 (0.0-0.7) 05/16/18 21:41 Baso # (Auto) 0.02 K/mm3 (0.0-2.0) 05/16/18 21:41 Sodium 139 mmol/L (132-148) 05/18/18 06:45 Potassium 4.8 mmol/L (3.6-5.0) 05/18/18 06:45 Chloride 103 mmol/L (98-107) 05/18/18 06:45 Carbon Dioxide 30 mmol/L (21-33) 05/18/18 06:45 Anion Gap 11 (10-20) 05/18/18 06:45 BUN 14 mg/dL (7-21) 05/18/18 06:45 Creatinine 1.0 mg/dl (0.8-1.5) 05/18/18 06:45 Est GFR ( Amer) > 60 05/18/18 06:45 Est GFR (Non-Af Amer) > 60 05/18/18 06:45 Random Glucose 90 mg/dL (70-110) 05/18/18 06:45 Calcium 9.2 mg/dL (8.4-10.5) 05/18/18 06:45 Total Bilirubin 0.3 mg/dL (0.2-1.3) 05/18/18 06:45 AST 26 U/L (17-59) 05/18/18 06:45 ALT 21 U/L (7-56) 05/18/18 06:45 Alkaline Phosphatase 81 U/L (38-126) 05/18/18 06:45 Total Protein 7.5 g/dL (5.8-8.3) 05/18/18 06:45 Albumin 4.0 g/dL (3.0-4.8) 05/18/18 06:45 Globulin 3.5 gm/dL 05/18/18 06:45 Albumin/Globulin Ratio 1.1 (1.1-1.8) 05/18/18 06:45 - Hospital Course Hospital Course: Upon Admission Pt is a 32 yo male with a PMH of asthma and psychosis who presents to the ED complaining of left foot pain s/p stepping on glass on 05-08-18 and having his foot laceration sutured by podiatry. Pt states he took his oral antibiotics and has been keeping his foot clean. Pt states this foot has been throbbing "a little". And that he has felt "a little" feverish. with associated nausea. Pt states he has been using the Percocet for pain as well as Motrin which has been helping. He is able to walk on the foot. Patient denies any outpatient followups. Hospital Course Pt was admitted to the hospital for possible abscess and cellulitis of foot wound. Blood cultures were negative. Gram stain of wound still pending. Pt was treated with IV ceftraxone and vancomycin. Wound care was provided daily. Wound is healing well, there is tenderness and erythema present but no purulence, no discharge or malodor. Podiatry was consulted. Pt is afebrile and there is no leukocytosis (WBC 4.8). Vitals are stable. Pt switched to PO keflex today per ID. Pt has been accepted by psych and will be transferred for further psych management. Instructed pt on non weight bearing and wound care. Asthma was managed with duonebs. Pt has no complaints of SOB or trouble breathing at this time. Psychosis: pt will be transferred to the care of psychiatry. Discharge plan Patient is medically stable for discharge to the psychiatric unit for further psychiatric care. Discharge Exam - Head Exam Head Exam: ATRAUMATIC, NORMOCEPHALIC - Eye Exam Eye Exam: EOMI, Normal appearance Pupil Exam: NORMAL ACCOMODATION - ENT Exam ENT Exam: Mucous Membranes Moist - Respiratory Exam Respiratory Exam: Clear to PA & Lateral, NORMAL BREATHING PATTERN. absent: Rales, Rhonchi, Wheezes, Stridor - Cardiovascular Exam Cardiovascular Exam: REGULAR RHYTHM, +S1, +S2. absent: Gallop, Rubs, Systolic Murmur - GI/Abdominal Exam GI & Abdominal Exam: Normal Bowel Sounds, Soft. absent: Distended, Tenderness - Extremities Exam Additional comments: well healing laceration repair with sutures on L foot, minimal erythema, no drainage - Neurological Exam Neurological exam: Alert, Oriented x3 - Psychiatric Exam Additional comments: delusions Discharge Plan - Discharge Medications Prescriptions: Cephalexin [cephalexin] 500 mg PO BID 8 Days #16 cap - Follow Up Plan Condition: STABLE Disposition: DISCHARGE TO PSYCH HOSPITAL Instructions: Schizophrenia, Delirium (Confusion), Wound Care (DC), Acute Psychosis (DC) Additional Instructions: You are being transferred to the behavioral health unit at [facility] where you will receive further treatment.
[2018-05-18 17:54] LABS: BARBITURATES, UR NEGATIVE (NEGATIVE); BENZODIAZEPINES, UR NEGATIVE (NEGATIVE); OPIATES, UR POSITIVE (NEGATIVE); PHENCYCLIDINE, UR NEGATIVE (NEGATIVE)
--- NOTE | 2018-05-18 19:19 | CP.PCM.PN ---
Subjective - Date & Time of Evaluation Date of Evaluation: 05/18/18 Time of Evaluation: 16:30 - Subjective Subjective: Infectious Disease Follow Up: May 18, 2018 32 yo male with several visits and hospitalizations to [facility] including psychiatric [place]. The patient came to [facility] this time for pain in the left foot after stepping on item that was on top of a glass bottle on 05/08/2018. The patient with a laceration on the left foot which he had sutures placed from the last hospitalization by Podiatry. The patient's initial dressings on admission were stained and dirty. He states that he kept the foot clean but reused the same dressings from when he left [facility] on the last hospitalization. At this time, the foot has minimal induration and erythema. It appears that he received Keflex on his discharge from psychiatry. He claims that he was compliant with antibiotics. Objective - Vital Signs/Intake and Output Vital Signs (last 24 hours): Temp Pulse Resp BP Pulse Ox 98 F 60 18 121/54 L 99 05/18/18 14:00 05/18/18 14:00 05/18/18 14:00 05/18/18 14:00 05/18/18 14:00 - Labs Labs: 05/18/18 06:45 05/18/18 06:45 - Constitutional Appears: Non-toxic, No Acute Distress, Chronically Ill - Head Exam Head Exam: ATRAUMATIC, NORMOCEPHALIC - Eye Exam Eye Exam: EOMI, PERRL Pupil Exam: NORMAL ACCOMODATION, PERRL - ENT Exam ENT Exam: Mucous Membranes Moist, Normal External Ear Exam, TM's Normal Bilaterally - Neck Exam Neck Exam: Full ROM, Normal Inspection - Respiratory Exam Respiratory Exam: Clear to Ausculation Bilateral, NORMAL BREATHING PATTERN. absent: Rales, Rhonchi, Wheezes - Cardiovascular Exam Cardiovascular Exam: REGULAR RHYTHM, RRR, +S1, +S2 - GI/Abdominal Exam GI & Abdominal Exam: Soft, Normal Bowel Sounds. absent: Distended, Tenderness - Extremities Exam Extremities Exam: absent: Joint Swelling, Pedal Edema Additional comments: left foot has a V shaped laceration which has been closed with sutures, fluctu ance and erythema is present, wound culture obtained - Neurological Exam Neurological Exam: Alert, Awake, CN II-XII Intact, Oriented x3 - Psychiatric Exam Psychiatric exam: Normal Affect, Normal Mood - Skin Skin Exam: Intact, Normal Color Assessment and Plan - Assessment and Plan (Free Text) Assessment: 32 yo male with increased pain and swelling to the left foot where he had a laceration from stepping on a glass bottle (I'm not clear if he directly or indirectly stepped on the glass). The patient has no fevers or leukocytosis. The patient was on Keflex. Would continue on Keflex 500 mg BID for 10 day cour se of treatment. Local wound care as per podiatry. Supportive care. Thank you for allowing me to participate in the care of the patient, we will follow with you.
--- NOTE | 2018-05-18 23:16 | PN ---
DATE: 05/18/2018 SUBJECTIVE: The patient was recently discharged from the psychiatric inpatient unit on 05/15/2018. The patient was requested to be discharged, reported that he is feeling fine. The patient came back to the hospital looking for help for his swelling of his left foot. The patient had injured. The patient stepped on the glass, required to have sutures. Psych consult was called for evaluation of bizarre behavior. The patient was seen by Dr. Javed over the weekend. The patient presented to be disorganized, guarded, and psychotic. The patient was seen and examined today. This editorial writer is very familiar with this patient from the previous admission. The patient presented to be disorganized. The patient reported some implant was inserted into his head, also some chip was inserted into his head that is why he feels headaches. The patient also reports that he is willing to get help and he is willing to be admitted to the Psychiatric Inpatient Unit and give written consent for collateral information from his aunt who lives with him. Collateral formation was obtained from the Contracts Director as per aunt. The patient was disorganized. The patient thought that his uncle did wudu on him and also some electrical as well as x-ray waves were going through his body. Also, the patient had feeling that he is monitored in the community as well as some cameras were inserted into his house. VITAL SIGNS: Reviewed. Temperature 98, pulse is 60, blood pressure 121/54, respirations 18, oxygen saturation is 99. MEDICATIONS: The patient was on Rocephin, Depakote was started, Lovenox, Pepcid, Ativan 0.5 mg at the nighttime, morphine, Risperdal 1 mg IM at bedtime, vancomycin 1 g daily, and Sonata as needed. LABORATORY DATA: Reviewed. Chemistry reviewed. Microbiology reviewed, gram-negative rods from the wound culture. MENTAL STATUS EXAMINATION: The patient presented to be guarded and disorganized. Intense eye contact. Mood described as fine. Affect was inappropriate at times. The patient was smiling, not related to the context of the conversation. Thought process disorganized. Thought content, the patient reported that he feels some chips inserted into his brain. The patient also feels that his hair is falling. The patient also reported that he was feeling unsafe in the community and he was feeling that he was monitored in the community. Insight and judgment limited. Impulses are well controlled. IMPRESSION: Rule out schizophrenia. PLAN: The patient was willing to sign in into the psychiatric inpatient unit. We will monitor the patient closely. Collaterals were obtained from the patient's aunt. The patient requires further hospitalization and stabilization. Jada Espino MD
== END 2018-05-18 18:50 | DRG 277 ==
LOC: ED 20:49 → ERH 22:44 → 5RSO 05-17 01:32 → 5RNO 05-17 18:56
PROVIDERS: ADMIT Internal Medicine; ATTEND Internal Medicine
DX: L03.116 Cellulitis of left lower limb (principal); F20.9 Schizophrenia, unspecified; F41.9 Anxiety disorder, unspecified; J45.909 Unspecified asthma, uncomplicated; S91.312A Laceration without foreign body, left foot, initial encounter; Z87.892 Personal history of anaphylaxis; Z91.013 Allergy to seafood

== ENCOUNTER 2018-05-18 18:50 | Inpatient (IN) | payer MEDICAID ==
[2018-05-18 21:41] VITALS: BMI 33.5
[2018-05-18] MEDS ORDERED: Magnesium Hydroxide Susp 30 ml UD PO PRN (21:41)
[2018-05-19] MEDS ORDERED: Albuterol HFA 90 mcg/actuation (8 g) IH PRN (01:34)
--- NOTE | 2018-05-19 03:52 | PCM.BM ---
Treatment Plan Problems - Problems identified on initial assessmt Altered thought process Date Initiated: 05/18/18 Time Initiated: 22:40 Assessment reference: NA Status: Active Non-compliance with medication Date Initiated: 05/18/18 Time Initiated: 22:50 Assessment reference: NA Status: Active Treatment assets and liabiliti Patient Assests: cooperative, ADL independent, physically healthy, good support system, cognitively intact Patient Liabilities: substance abuse - Milieu Protocol Maintain good personal hygiene: daily Encourage regular showers, daily Remind patient to perform daily oral care, daily Assist patient to perform ADL's Maintain personal safety: daily Educate patient to report safety concerns to staff, daily Monitor environment for contraband/sharps Medication safety: Monitor for expected outcome, potential side effects: daily, Assess barriers to learning: daily, Assess readiness for medication education: daily Family Contact Family involvement: Patient does not wish Family/SO involvement - Goals for Treatment Patient goals for treatment: I Wanna get my head checked out Discharge/Continuing Care - Education Needs Education Needs: Patient Medication, Patient Diagnosis/Disease Process, Patient Aftercare Safety Plan - Discharge Discharge Criteria: Free of paranoid thoughts, Normal sleep pattern
--- NOTE | 2018-05-19 04:30 | PCM.BM ---
<Bradley Seo O - Last Filed: 05/19/18 04:07> Treatment Plan Problems - Problems identified on initial assessmt Altered thought process Date Initiated: 05/18/18 Time Initiated: 22:40 Assessment reference: NA Status: Active Non-compliance with medication Date Initiated: 05/18/18 Time Initiated: 22:50 Assessment reference: NA Status: Active Treatment assets and liabiliti Patient Assests: cooperative, ADL independent, physically healthy, good support system, cognitively intact Patient Liabilities: substance abuse - Milieu Protocol Maintain good personal hygiene: daily Encourage regular showers, daily Remind patient to perform daily oral care, daily Assist patient to perform ADL's Maintain personal safety: daily Educate patient to report safety concerns to sta ff, daily Monitor environment for contraband/sharps Medication safety: Monitor for expected outcome, potential side effects: daily, Assess barriers to learning: daily, Assess readiness for medication education: daily Family Contact Family involvement: Patient does not wish Family/SO involvement - Goals for Treatment Patient goals for treatment: I Wanna get my head checked out Discharge/Continuing Care - Education Needs Education Needs: Patient Medication, Patient Diagnosis/Disease Process, Patient Aftercare Safety Plan - Discharge Discharge Criteria: Free of paranoid thoughts, Normal sleep pattern <Jada Espino - Last Filed: 05/19/18 16:36> - Diagnosis (1) Schizophreniform disorder Status: Acute Interventions: 05/19/18 16:37 Psychoeducation/psychotherapy Psychopharmacology/adjustment of medications as needed/ monitoring possible side effects Evaluate pt on daily basis Compliance with medications and follow up appointments Long acting medication if pt is noncompliant with pill form Suicide and homicide risk assessment and prevention, coping strategies, safety plan Relapse prevention Reduction of symptoms Improve functional status Possible assertive community treatment Cognitive behavioral therapy Family involvement Possible social skill training as outpatient <Deanne Knowles Y - Last Filed: 05/20/18 16:46> Family Contact Family contact name: Meri Kingston([phone]) aunt Family contacted how many times per week?: 2
[2018-05-19 08:14] LABS: BASO # 0.01 K/mm3 (0.0-2.0); BASO % 0.2 % (0.0-3.0); EOS # 0.2 (0.0-0.7); EOS % 2.7 % (1.5-5.0); GRAN # 3.45 (1.4-6.5); GRAN % 61.1 % (50.0-68.0); HEMOGLOBIN 12.6 g/dL (14.0-18.0); LYMPH # 1.4 (1.2-3.4); LYMPH % 25.2 % (22.0-35.0); MEAN CELL VOLUME 75.7 fl (80.0-105.0); MEAN CORPUSCULAR HEMOGLOBIN 24.9 pg (25.0-35.0); MEAN CORPUSCULAR HGB CONC 32.8 g/dl (31.0-37.0); MEAN PLATELET VOLUME 10.6 fl (7.0-11.0); MONO # 0.6 (0.1-0.6); MONO % 10.8 % (1.0-6.0); RBC 5.07 10^6/uL (3.5-6.1); RED CELL DISTRIBUTION WIDTH 13.8 % (11.5-14.5); WHITE BLOOD COUNT 5.6 10^3/ul (4.5-11.0)
[2018-05-19 08:30] LABS: BLOOD UREA NITROGEN 17 mg/dL (7-21); CALCIUM 9.1 mg/dL (8.4-10.5); GFR NON-AFRICAN AMERICAN > 60; GLUCOSE,FASTING 94 mg/dL (65-110); HDL CHOLESTEROL 53 mg/dL (29-60)
[2018-05-19 08:37] LABS: LDL CHOLESTEROL 75 mg/dL (0-129)
[2018-05-19] MEDS: Divalproex 500 mg DR(BID formulation) PO SCH ×2 (09:12→16:14)
--- NOTE | 2018-05-19 16:04 | CP.PCM.PN ---
Subjective - Date & Time of Evaluation Date of Evaluation: 05/19/18 Time of Evaluation: 16:03 - Subjective Subjective: Podiatry progress note for Dr. Bunch: 32 yo male patient seen and evaluated in the psych unit, for left foot pain and swelling secondary to laceration. Patient is resting in bed comfortably. He rates his pain 6/10 today to the bottom of his left foot. Patient continues to weightbear to his left foot. Denies any other pedal complaints at this time. Denies N/V/F/SOB/CP. Objective - Vital Signs/Intake and Output Vital Signs (last 24 hours): Temp Pulse Resp BP Pulse Ox 97.7 F 67 20 122/76 05/19/18 07:11 05/19/18 07:11 05/19/18 07:11 05/19/18 07:11 - Medications Medications: Current Medications Acetaminophen (Tylenol 325mg Tab) 650 mg PO Q6H PRN PRN Reason: Pain, Mild (1-3) Al Hydrox/Mg Hydrox/Simethicone (Maalox Plus 30 Ml) 30 ml PO DAILY PRN PRN Reason: Dyspepsia Albuterol (Ventolin Hfa 90 Mcg/Actuation (8 G)) 2 puff IH [id number] PRN PRN Reason: Shortness of Breath Cephalexin Monohydrate (Keflex) 500 mg PO BID BONNY; Protocol Last Admin: 05/19/18 09:11 Dose: 500 mg Divalproex Sodium (Depakote Dr(*Bid*)) 500 mg PO BID BONNY Last Admin: 05/19/18 09:12 Dose: 500 mg Lorazepam (Ativan) 1 mg PO HS BONNY; Protocol Lorazepam (Ativan) 1 mg PO BID BONNY; Protocol Magnesium Hydroxide (Milk Of Magnesia) 30 ml PO DAILY PRN PRN Reason: Constipation Risperidone (Risperdal Tab) 1 mg PO BID BONNY; Protocol Risperidone (Risperdal Tab) 1 mg PO HS BONNY; Protocol Tramadol HCl (Ultram) 50 mg PO Q6 PRN PRN Reason: Pain, moderate (4-7) Last Admin: 05/19/18 10:23 Dose: 50 mg Zaleplon (Sonata) 5 mg PO HS PRN PRN Reason: Insomnia Last Admin: 05/18/18 22:05 Dose: 5 mg Ziprasidone (Geodon Cap) 20 mg PO BID PRN; Protocol PRN Reason: Agitation Ziprasidone (Geodon Inj) 20 mg IM BID PRN; Protocol PRN Reason: Agitation - Labs Labs: 05/19/18 07:30 05/19/18 07:30 - Constitutional Appears: Well, Non-toxic, No Acute Distress - Head Exam Head Exam: ATRAUMATIC, NORMOCEPHALIC - Extremities Exam Additional comments: LLE focused exam: Vasc: DP and PT pulses 2/4, temp gradient warm to warm from proximal to distal, cap refill <3 seconds to all digits, mild edema present about the medial arch where laceration and sutures are located Derm: intact sutures to the medial arch; resolving erythema present periwound, no purulence, no malodor, no drainage present, no clinical signs of infection Ortho: no tenderness to palpation of laceration site Neuro: gross and protective sensation intact - Neurological Exam Neurological Exam: Alert, Awake, Oriented x3 - Psychiatric Exam Psychiatric exam: Normal Affect, Normal Mood Assessment and Plan - Assessment and Plan (Free Text) Assessment: 32 yo male seen and evaluated for left foot pain with edema secondary to laceration Plan: Patient seen and evaluated in the psych unit Patient plan discussed in detail with Dr. Bunch Chart, labs, and vitals reviewed; afebrile, absent leukocytosis Sutures left intact to left foot and dressed with DSD L foot x-ray (05/17); soft tissue swelling without acute articular and osseous abnormality Patient instructed to remain NWB to left lower extremity with surgical shoe to help reduce swelling to plantar midfoot; discussed the importance of using a wheelchair Patient encouraged to elevate lower extremity while resting in bed Podiatry will continue to follow while in house
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
[2018-05-20] MEDS: Divalproex 500 mg DR(BID formulation) PO SCH ×2 (09:15→17:27)
--- NOTE | 2018-05-20 14:36 | CP.PCM.PN ---
Subjective - Date & Time of Evaluation Date of Evaluation: 05/20/18 Time of Evaluation: 14:46 - Subjective Subjective: Podiatry progress note for Dr. Bunch: 32 yo male patient seen and evaluated in the psych unit, for left foot repaired laceration secondary to stepping on glass. Patient is non-weight bearing ambulating in a wheelchair at today's visit. He notes that there is mild pain to the suture site when it is touched. Patient denies any other complaints at this time. Denies N/V/F/SOB/CP. Objective - Vital Signs/Intake and Output Vital Signs (last 24 hours): Temp Pulse Resp BP Pulse Ox 98.0 F 63 20 126/82 05/20/18 07:20 05/20/18 07:20 05/20/18 07:20 05/20/18 07:20 - Medications Medications: Current Medications Acetaminophen (Tylenol 325mg Tab) 650 mg PO Q6H PRN PRN Reason: Pain, Mild (1-3) Al Hydrox/Mg Hydrox/Simethicone (Maalox Plus 30 Ml) 30 ml PO DAILY PRN PRN Reason: Dyspepsia Albuterol (Ventolin Hfa 90 Mcg/Actuation (8 G)) 2 puff IH [id number] PRN PRN Reason: Shortness of Breath Cephalexin Monohydrate (Keflex) 500 mg PO BID [facility]; Protocol Last Admin: 05/20/18 09:15 Dose: 500 mg Clonazepam (Klonopin) 1 mg PO BID [facility]; Protocol Divalproex Sodium (Depakote Dr(*Bid*)) 500 mg PO BID [facility] Last Admin: 05/20/18 09:15 Dose: 500 mg Magnesium Hydroxide (Milk Of Magnesia) 30 ml PO DAILY PRN PRN Reason: Constipation Risperidone (Risperdal Tab) 1 mg PO BID [facility]; Protocol Last Admin: 05/20/18 09:15 Dose: 1 mg Risperidone (Risperdal Tab) 1 mg PO HS [facility]; Protocol Last Admin: 05/19/18 21:51 Dose: 1 mg Tramadol HCl (Ultram) 50 mg PO Q6 PRN PRN Reason: Pain, moderate (4-7) Last Admin: 05/20/18 13:53 Dose: 50 mg Zaleplon (Sonata) 5 mg PO HS PRN PRN Reason: Insomnia Last Admin: 10/01/18 22:05 Dose: 5 mg Ziprasidone (Geodon Cap) 20 mg PO BID PRN; Protocol PRN Reason: Agitation Ziprasidone (Geodon Inj) 20 mg IM BID PRN; Protocol PRN Reason: Agitation - Labs Labs: 05/19/18 07:30 05/19/18 07:30 - Constitutional Appears: Well, Non-toxic, No Acute Distress - Head Exam Head Exam: ATRAUMATIC, NORMOCEPHALIC - Extremities Exam Additional comments: LLE focused exam: Vasc: DP and PT pulses 2/4, temp gradient warm to warm from proximal to distal, cap refill <3 seconds to all digits, mild edema present about the medial arch where laceration and sutures are located Ortho: no tenderness to palpation of laceration site Neuro: gross and protective sensation intact Derm: intact sutures to the medial arch; mild serous drainage from apex of surgical site, mild < 1/2 cc of purulence from apex of surgical site, resolving erythema present periwound, no malodor - Neurological Exam Neurological Exam: Alert, Awake - Psychiatric Exam Psychiatric exam: Normal Affect, Normal Mood Assessment and Plan - Assessment and Plan (Free Text) Assessment: 32 yo male seen and evaluated for left foot pain with edema secondary to repaired laceration Plan: Patient seen and evaluated in the psych unit; patient plan discussed in detail with Dr. Bunch Chart, labs, and vitals reviewed; afebrile, no new labs One suture removed from apex of surgical site, was not able to express any additional purulence or drainage Surgical site painted with betadine and dressed with DSD Continue with Keflex 500 mg PO BID L foot x-ray (05/17); soft tissue swelling without acute articular and osseous abnormality Patient instructed to remain NWB to left lower foot and to continue using wheelchair as instructed Patient encouraged to elevate lower extremity while resting in bed Podiatry will continue to follow while in house
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
[2018-05-20] MEDS: Alum-Mag Hydrox-Simethicone Susp (30 mL) PO PRN (21:26)
[2018-05-21] MEDS: Divalproex 500 mg DR(BID formulation) PO SCH ×2 (08:22→16:01)
[2018-05-21] MEDS: Alum-Mag Hydrox-Simethicone Susp (30 mL) PO PRN ×2 (08:29→22:33)
--- NOTE | 2018-05-21 12:19 | CP.PCM.PN ---
Subjective - Date & Time of Evaluation Date of Evaluation: 05/21/18 Time of Evaluation: 12:16 - Subjective Subjective: Podiatry progress note for Dr. Bunch: 32 yo male patient seen and evaluated for left foot repaired laceration secondary to stepping on glass. Patient is AAOx3 and in NAD. Patient notes that his pain is resolving. He continues to ambulate using wheelchair. Patient denies any other complaints at this time. Denies N/V/F/SOB/CP. Objective - Vital Signs/Intake and Output Vital Signs (last 24 hours): Temp Pulse Resp BP Pulse Ox 97.7 F 57 L 20 121/83 05/21/18 07:13 05/21/18 07:13 05/21/18 07:13 05/21/18 07:13 - Medications Medications: Current Medications Acetaminophen (Tylenol 325mg Tab) 650 mg PO Q6H PRN PRN Reason: Pain, Mild (1-3) Al Hydrox/Mg Hydrox/Simethicone (Maalox Plus 30 Ml) 30 ml PO DAILY PRN PRN Reason: Dyspepsia Last Admin: 05/21/18 08:29 Dose: 30 ml Albuterol (Ventolin Hfa 90 Mcg/Actuation (8 G)) 2 puff IH [id number] PRN PRN Reason: Shortness of Breath Cephalexin Monohydrate (Keflex) 500 mg PO BID [facility]; Protocol Last Admin: 05/21/18 08:22 Dose: 500 mg Clonazepam (Klonopin) 1 mg PO BID [facility]; Protocol Last Admin: 05/21/18 08:22 Dose: 1 mg Divalproex Sodium (Depakote Dr(*Bid*)) 500 mg PO BID [facility] Last Admin: 05/21/18 08:22 Dose: 500 mg Magnesium Hydroxide (Milk Of Magnesia) 30 ml PO DAILY PRN PRN Reason: Constipation Risperidone (Risperdal Tab) 1 mg PO BID [facility]; Protocol Last Admin: 05/21/18 08:22 Dose: 1 mg Risperidone (Risperdal Tab) 1 mg PO HS [facility]; Protocol Last Admin: 05/20/18 22:41 Dose: Not Given Tramadol HCl (Ultram) 50 mg PO Q6 PRN PRN Reason: Pain, moderate (4-7) Last Admin: 05/21/18 09:24 Dose: 50 mg Zaleplon (Sonata) 5 mg PO HS PRN PRN Reason: Insomnia Last Admin: 05/20/18 21:01 Dose: 5 mg Ziprasidone (Geodon Cap) 20 mg PO BID PRN; Protocol PRN Reason: Agitation Ziprasidone (Geodon Inj) 20 mg IM BID PRN; Protocol PRN Reason: Agitation - Labs Labs: 05/19/18 07:30 05/19/18 07:30 - Constitutional Appears: Well, Non-toxic, No Acute Distress - Head Exam Head Exam: ATRAUMATIC, NORMOCEPHALIC - Extremities Exam Additional comments: LLE focused exam: Vasc: DP and PT pulses 2/4, temp gradient warm to warm from proximal to distal, cap refill <3 seconds to all digits, resolving edema present about the medial arch where laceration and sutures are located Ortho: no tenderness to palpation of laceration site upon dressing change Neuro: gross and protective sensation intact Derm: intact sutures to the medial arch; mild serous drainage from apex of surgical site, mild < 1/2 cc of purulence from center of surgical site appreciated today, resolving erythema present periwound, no malodor - Neurological Exam Neurological Exam: Alert, Awake, Oriented x3 - Psychiatric Exam Psychiatric exam: Normal Affect, Normal Mood - Skin Skin Exam: Warm Assessment and Plan - Assessment and Plan (Free Text) Assessment: 32 yo male seen and evaluated for left foot pain with edema secondary to repaired laceration Plan: L foot resolving pain and edema secondary to laceration site Patient seen and evaluated in the psych unit Patient plan discussed in detail with Dr. Bunch Chart, labs, and vitals reviewed; afebrile, no new labs today (05/21) <1/2 cc of purulence expressed from surgical site again today, wound dressed with adaptic, DSD Continue with Keflex 500 mg PO BID L foot x-ray (05/17); soft tissue swelling without acute articular and osseous abnormality Patient instructed to remain NWB to left lower foot and to continue using wheelchair Podiatry will continue to monitor healing progression
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
[2018-05-22] MEDS: Divalproex 500 mg DR(BID formulation) PO SCH ×2 (08:13→15:50)
--- NOTE | 2018-05-22 10:28 | CP.PCM.PN ---
Subjective - Date & Time of Evaluation Date of Evaluation: 05/22/18 Time of Evaluation: 10:26 - Subjective Subjective: Podiatry Progress Note for Dr. Bunch: 32 yo male patient, seen and evaluated in psych unit for left foot repair laceration secondary to stepping on glass. Patient is resting comfortably and sleeping in bed. He denies any acute overnight events. Patient states he no longer has his wheelchair and will have to weightbear. Patient states that the pain is resolving and he is starting to feel better. Denies N/V/F/SOB/CP. Objective - Vital Signs/Intake and Output Vital Signs (last 24 hours): Temp Pulse Resp BP Pulse Ox 97.3 F L 57 L 20 127/87 05/22/18 07:10 05/22/18 07:10 05/22/18 07:10 05/22/18 07:10 - Medications Medications: Current Medications Acetaminophen (Tylenol 325mg Tab) 650 mg PO Q6H PRN PRN Reason: Pain, Mild (1-3) Al Hydrox/Mg Hydrox/Simethicone (Maalox Plus 30 Ml) 30 ml PO DAILY PRN PRN Reason: Dyspepsia Last Admin: 05/21/18 22:33 Dose: 30 ml Albuterol (Ventolin Hfa 90 Mcg/Actuation (8 G)) 2 puff IH [id number] PRN PRN Reason: Shortness of Breath Last Admin: 05/21/18 22:29 Dose: 2 inhaler Benztropine Mesylate (Cogentin) 0.5 mg PO [facility] Last Admin: 05/21/18 22:34 Dose: 0.5 mg Cephalexin Monohydrate (Keflex) 500 mg PO BID [facility]; Protocol Last Admin: 05/22/18 08:13 Dose: 500 mg Clonazepam (Klonopin) 1 mg PO BID [facility]; Protocol Last Admin: 05/22/18 08:14 Dose: 1 mg Divalproex Sodium (Depakote Dr(*Bid*)) 500 mg PO BID [facility] Last Admin: 05/22/18 08:13 Dose: 500 mg Magnesium Hydroxide (Milk Of Magnesia) 30 ml PO DAILY PRN PRN Reason: Constipation Risperidone (Risperdal Tab) 2 mg PO AM[facility]; Protocol Last Admin: 05/21/18 22:34 Dose: 2 mg Tramadol HCl (Ultram) 50 mg PO Q6 PRN PRN Reason: Pain, moderate (4-7) Last Admin: 05/22/18 08:13 Dose: 50 mg Zaleplon (Sonata) 5 mg PO HS PRN PRN Reason: Insomnia Last Admin: 05/21/18 22:34 Dose: 5 mg Ziprasidone (Geodon Cap) 20 mg PO BID PRN; Protocol PRN Reason: Agitation Ziprasidone (Geodon Inj) 20 mg IM BID PRN; Protocol PRN Reason: Agitation - Labs Labs: 05/19/18 07:30 05/19/18 07:30 - Constitutional Appears: Well, Non-toxic, No Acute Distress - Head Exam Head Exam: ATRAUMATIC, NORMOCEPHALIC - Extremities Exam Additional comments: LLE focused exam: Vasc: DP and PT pulses 2/4, temp gradient warm to warm from proximal to distal, cap refill <3 seconds to all digits, no edema noted to medial arch Ortho: no tenderness to palpation of laceration site upon dressing change, MMT 5/5 in all compartments, no pain upon calf compression Neuro: gross and protective sensation intact Derm: intact sutures to the medial arch; no drainage appreciated today, resol ving erythema present periwound, no malodor, no dehiscence, no current clinical signs of infection - Neurological Exam Neurological Exam: Alert, Awake, Oriented x3 - Psychiatric Exam Psychiatric exam: Normal Affect, Normal Mood Assessment and Plan - Assessment and Plan (Free Text) Assessment: 32 yo male seen and evaluated for repaired laceration secondary to stepping on glass Plan: Patient seen and evaluated in the psych unit; plan discussed in detail with Dr. Bunch Chart, labs, and vitals reviewed; afebrile, no new labs today (05/21) Wound dressed with betadine, adaptic, DSD Continue with Keflex 500 mg PO BID L foot x-ray (05/17); soft tissue swelling without acute articular and osseous abnormality Patient instructed to remain NWB to left lower foot; wheel chair requested Podiatry will continue to follow while in house
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
[2018-05-22] MEDS: Alum-Mag Hydrox-Simethicone Susp (30 mL) PO PRN ×2 (15:50→19:24)
[2018-05-23] MEDS: Divalproex 500 mg DR(BID formulation) PO SCH ×2 (09:08→16:04)
[2018-05-23] MEDS: Alum-Mag Hydrox-Simethicone Susp (30 mL) PO PRN (09:16)
--- NOTE | 2018-05-23 09:48 | CP.PCM.PN ---
Subjective - Date & Time of Evaluation Date of Evaluation: 05/23/18 Time of Evaluation: 09:39 - Subjective Subjective: Podiatry - Dr. Bunch 32M seen and evaluated this AM for left foot repair of laceration 2/2 stepping on glass. No acute events overnight. Patient reports mild tenderness to site of injury. Patient states he has been using his wheelchair however continues to bear some weight on his left foot. Dressing to left foot clean/dry/intact. Offers no other pedal complaints. Denies N/V/F/D/C/SOB/GRANT/CP. Objective - Vital Signs/Intake and Output Vital Signs (last 24 hours): Temp Pulse Resp BP Pulse Ox 97.8 F 53 L 20 133/91 H 05/23/18 06:54 05/23/18 06:54 05/23/18 06:54 05/23/18 06:54 - Medications Medications: Current Medications Acetaminophen (Tylenol 325mg Tab) 650 mg PO Q6H PRN PRN Reason: Pain, Mild (1-3) Al Hydrox/Mg Hydrox/Simethicone (Maalox Plus 30 Ml) 30 ml PO DAILY PRN PRN Reason: Dyspepsia Last Admin: 05/23/18 09:16 Dose: 30 ml Albuterol (Ventolin Hfa 90 Mcg/Actuation (8 G)) 2 puff IH [id number] PRN PRN Reason: Shortness of Breath Last Admin: 05/21/18 22:29 Dose: 2 inhaler Benztropine Mesylate (Cogentin) 0.5 mg PO [facility] Last Admin: 05/23/18 09:08 Dose: 0.5 mg Cephalexin Monohydrate (Keflex) 500 mg PO BID [facility]ONNY; Protocol Last Admin: 05/23/18 09:08 Dose: 500 mg Clonazepam (Klonopin) 0.5 mg PO BID BONNY; Protocol Last Admin: 05/23/18 09:08 Dose: 0.5 mg Divalproex Sodium (Depakote Dr(*Bid*)) 500 mg PO BID [facility] Last Admin: 05/23/18 09:08 Dose: 500 mg Magnesium Hydroxide (Milk Of Magnesia) 30 ml PO DAILY PRN PRN Reason: Constipation Risperidone (Risperdal Tab) 2 mg PO [facility]; Protocol Last Admin: 05/23/18 09:09 Dose: 2 mg Sodium Chloride ([place] Nasal [place]) 0 ml NS Q4H PRN PRN Reason: Nasal congestion Tramadol HCl (Ultram) 50 mg PO Q6 PRN PRN Reason: Pain, moderate (4-7) Last Admin: 05/22/18 23:53 Dose: 50 mg Zaleplon (Sonata) 5 mg PO HS PRN PRN Reason: Insomnia Last Admin: 05/22/18 21:25 Dose: 5 mg Ziprasidone (Geodon Cap) 20 mg PO BID PRN; Protocol PRN Reason: Agitation Ziprasidone (Geodon Inj) 20 mg IM BID PRN; Protocol PRN Reason: Agitation - Labs Labs: 05/19/18 07:30 05/19/18 07:30 - Constitutional Appears: Well, Non-toxic, No Acute Distress - Extremities Exam Additional comments: LLE focused exam: Vasc: DP and PT pulses 2/4, temp gradient warm to warm from proximal to distal with no increase in warmth to laceration site, cap refill <3 seconds to all digits, no edema noted to medial arch Ortho: Slight tenderness to palpation of laceration site upon dressing change, MMT 5/5 in all compartments, no pain upon calf compression Neuro: gross and protective sensation intact Derm: intact sutures to the medial arch; no drainage present; erythema resolved; no malodor, no dehiscence, no current clinical signs of infection - Neurological Exam Neurological Exam: Alert, Awake, Oriented x3 - Psychiatric Exam Psychiatric exam: Normal Affect, Normal Mood Assessment and Plan - Assessment and Plan (Free Text) Assessment: 32M with left foot repaired laceration secondary to stepping on glass Plan: Patient seen and evaluated Discussed with attending, Dr. Julio C Tompkins foot XR (05/17): ST swelling w/o acute articular and osseous abnormality Continue abx - Keflex 500mg PO BID Continue local wound care: betadine, adaptic, DSD Activity: NWB LLE w/wheelchair Podiatry will continue to follow
--- NOTE | 2018-05-23 14:04 | PCM.PYCHPN ---
Psychiatric Progress Note - Psychiatric Progress Note Patient seen today, length of contact: 30 minute Patient Chief Complaint: "medications make me feel very sleepy" Problems Identified/Issues Discussed: Suicide/ homicide prevention, past psychiatric h/o, current psychiatric symptoms, medical problems, risk/benefits and alternatives of medications, medications compliance, coping strategies, substance abuse h/o, relapse prevention, importance of follow up with psychiatrist and therapist, discharge plan. Medical Problems: see HPI Diagnostic Results: 05/19/18 07:30 05/19/18 07:30 Lab Results 05/19/18 07:30: WBC 5.6, RBC 5.07, Hgb 12.6 L, Hct 38.4 L, MCV 75.7 L, MCH 24.9 L, MCHC 32.8, RDW 13.8, Plt Count 229, MPV 10.6, Gran % 61.1, Lymph % (Auto) 25.2, [place] % (Auto) 10.8 H, Eos % (Auto) 2.7, Baso % (Auto) 0.2, Gran # 3.45, Lymph # (Auto) 1.4, [place] # (Auto) 0.6, Eos # (Auto) 0.2, Baso # (Auto) 0.01 05/19/18 07:30: Hemoglobin A1c 5.8 05/19/18 07:30: RPR Nonreactive 05/19/18 07:30: TSH 3rd Generation 1.13 05/19/18 07:30: Sodium 139, Potassium 4.5, Chloride 103, Carbon Dioxide 30, Anion Gap 11, BUN 17, Creatinine 1.1, Est GFR ( Amer) > 60, Est GFR (Non- Af Amer) > 60, Random Glucose 94, Fasting Glucose 94, Calcium 9.1, Triglycerides 45, Cholesterol 162, LDL Cholesterol Direct 75, HDL Cholesterol 53 Vital Signs Temp Pulse Resp BP 05/20/18 07:20 98.0 F 63 20 126/82 05/19/18 16:00 66 131/84 05/19/18 07:11 97.7 F 67 20 122/76 05/19/18 01:38 18 DSM 5 Symptoms Update: shortly patient is 32-year-old Male with previous psychiatric history of psychosis, patient was recently discharged from this psychiatric inpatient unit less than a week ago, not known previous suicidal attempts, pt brought himself to the hospital or the leg pain, initially was admitted on the m edical side, got IV antibiotics, was medically cleared, patient presented to be as organized, psychotic, had impression that some chips were inserted in his brain, collateral information were obtained from patient aunt, patient was self isolative, had feeling that his uncle did woodu on him, patient also had impression that cameras are monitoring him, patient required further evaluation and stabilization into the psychiatric inpatient unit, patient was transferred in 05/18/2018, transfer was uneventful. patient was seen today in his room, poor insight, pt was asking about discharge, pt was asking about benzodiazepines ONLY. pt said he is drooling, no drooling observed. pt was advised to continue meds, will change klonopin to xanax. Headache is better. patient is odd, disorganized, guarded. so far patient tolerates medications well, no side effects observed or reported, aims 0, no EPS. as per surgical team patient needs to ambulate using a wheelchair for the next 7 days because of the food poorly healing. Impression: Schizophrenia form Delusional disorder Rule out schizophrenia Medication Change: Yes (Klonopin decreased) Medical Record Reviewed: Yes Mental Status Examination - Cognitive Function Orientation: Person, Place, Situation Memory: Impaired Attention: Poor Concentration: Poor Association: Loose Fund of Knowledge: Poor - Mood Mood: Neutral - Affect Affect: Flat - Formal Thought Process Formal Thought Process: Delusions, Paranoia, Loosening of associations, Circumstantial - Suicidal Ideation Suicidal Ideation: No - Homicidal Ideation Homicidal Ideation: No Goal/Treatment Plan - Goal/Treatment Plan Need for Continued Stay: Remain at risks for inpatient hospitalization, Severe depression anxiety, Discharge may exacerbated symptoms, Severe functional imp airment Progress Toward Problem(s) and Goals/Treatment Plan: Milieu/structure/supportive therapy Medical consult appreciated, see medical team note for more detailed info patient is on antibiotics for wound infection Neurology follow-up appreciated SW consultation for discharge plan and social issues Med management Risperdal 2mg amhs for psychosis cogentin 0.5 mg twice a day EPS prophylaxis xanax 0.5 mg twice a day for anxiety Depakote for headaches as well as mood stabilization collateral information from aunt appreciated, please see social media marketing analyst notes for more detailed information Family involvement Follow up on labs Will monitor closely Pt was educated about risk/benefits and alternatives of medications, coping strategies (safety plan, suicide prevention), relapse prevention, importance of follow up with psychiatrist and therapist, stay away from drugs/alcohol/smoking physical therapy evaluated patient today 05/22/18 Estimated Date of D/C: 05/25/18
[2018-05-24] MEDS: Divalproex 500 mg DR(BID formulation) PO SCH ×2 (09:11→16:33)
[2018-05-24] MEDS: Alum-Mag Hydrox-Simethicone Susp (30 mL) PO PRN ×2 (09:14→21:36)
--- NOTE | 2018-05-24 12:17 | CP.PCM.PN ---
Subjective - Date & Time of Evaluation Date of Evaluation: 05/24/18 Time of Evaluation: 12:13 - Subjective Subjective: Podiatry - Dr. Bunch 32M seen and evaluated this AM for left foot repair of laceration 2/2 stepping on glass. No acute events overnight. Patient reports minimal pain to laceration site today. Patient states dressing became unraveled yesterday. Patent complaint with remaining NWB LLE and using his wheelchair. Offers no other pedal complaints. Denies N/V/F/D/C/SOB/GRANT/CP. Objective - Vital Signs/Intake and Output Vital Signs (last 24 hours): Temp Pulse Resp BP Pulse Ox 97.4 F L 53 L 20 120/80 05/24/18 07:06 05/24/18 07:06 05/24/18 07:06 05/24/18 07:06 - Medications Medications: Current Medications Acetaminophen (Tylenol 325mg Tab) 650 mg PO Q6H PRN PRN Reason: Pain, Mild (1-3) Al Hydrox/Mg Hydrox/Simethicone (Maalox Plus 30 Ml) 30 ml PO DAILY PRN PRN Reason: Dyspepsia Last Admin: 05/24/18 09:14 Dose: 30 ml Albuterol (Ventolin Hfa 90 Mcg/Actuation (8 G)) 2 puff IH [id number] PRN PRN Reason: Shortness of Breath Last Admin: 05/21/18 22:29 Dose: 2 inhaler Alprazolam (Xanax) 0.5 mg PO BID PRN; Protocol PRN Reason: Anxiety Last Admin: 05/24/18 05:10 Dose: 0.5 mg Benztropine Mesylate (Cogentin) 0.5 mg PO [facility] Last Admin: 05/24/18 09:11 Dose: 0.5 mg Cephalexin Monohydrate (Keflex) 500 mg PO BID [facility]; Protocol Last Admin: 05/24/18 09:11 Dose: 500 mg Divalproex Sodium (Depakote Dr(*Bid*)) 500 mg PO BID [facility] Last Admin: 05/24/18 09:11 Dose: 500 mg Magnesium Hydroxide (Milk Of Magnesia) 30 ml PO DAILY PRN PRN Reason: Constipation Risperidone (Risperdal Tab) 2 mg PO [facility]; Protocol Last Admin: 05/24/18 09:11 Dose: 2 mg Sodium Chloride ([place] Nasal [place]) 0 ml NS Q4H PRN PRN Reason: Nasal congestion Tramadol HCl (Ultram) 50 mg PO Q6 PRN PRN Reason: Pain, moderate (4-7) Last Admin: 05/23/18 13:01 Dose: 50 mg Zaleplon (Sonata) 5 mg PO HS PRN PRN Reason: Insomnia Last Admin: 05/23/18 21:26 Dose: 5 mg Ziprasidone (Geodon Cap) 20 mg PO BID PRN; Protocol PRN Reason: Agitation Ziprasidone (Geodon Inj) 20 mg IM BID PRN; Protocol PRN Reason: Agitation - Labs Labs: 05/19/18 07:30 05/19/18 07:30 - Constitutional Appears: Well, Non-toxic, No Acute Distress - Extremities Exam Additional comments: LLE focused exam: Vasc: DP and PT pulses 2/4, temp gradient warm to warm from proximal to distal with no increase in warmth to laceration site, cap refill <3 seconds to all digits, minimal nonpitting edema noted to medial arch Ortho: No tenderness to palpation of laceration site upon dressing change, MMT 5/5 in all compartments, no pain upon calf compression Neuro: gross and protective sensation intact Derm: intact sutures to the medial arch; no drainage present; erythema resolved; no malodor, no dehiscence, no current clinical signs of infection - Neurological Exam Neurological Exam: Alert, Awake, Oriented x3 - Psychiatric Exam Psychiatric exam: Normal Affect, Normal Mood Assessment and Plan - Assessment and Plan (Free Text) Assessment: 32M with left foot repaired laceration secondary to stepping on glass Plan: Patient seen and evaluated Discussed with attending, Dr. Julio C Tompkins foot XR (05/17): ST swelling w/o acute articular and osseous abnormality Continue abx - Keflex 500mg PO BID Continue local wound care: betadine, adaptic, DSD Activity: NWB LLE w/wheelchair Possible removal of sutures tomorrow Podiatry will continue to follow
--- NOTE | 2018-05-24 13:09 | PCM.PYCHPN ---
Psychiatric Progress Note - Psychiatric Progress Note Patient seen today, length of contact: 30 minute Patient Chief Complaint: "I feel much better, may I go home tomorrow?" Problems Identified/Issues Discussed: Suicide/ homicide prevention, past psychiatric h/o, current psychiatric symptoms, medical problems, risk/benefits and alternatives of medications, medications compliance, coping strategies, substance abuse h/o, relapse prevention, importance of follow up with psychiatrist and therapist, discharge plan. Medical Problems: see HPI Diagnostic Results: 05/19/18 07:30 05/19/18 07:30 Lab Results 05/19/18 07:30: WBC 5.6, RBC 5.07, Hgb 12.6 L, Hct 38.4 L, MCV 75.7 L, MCH 24.9 L, MCHC 32.8, RDW 13.8, Plt Count 229, MPV 10.6, Gran % 61.1, Lymph % (Auto) 25.2, [place] % (Auto) 10.8 H, Eos % (Auto) 2.7, Baso % (Auto) 0.2, Gran # 3.45, Lymph # (Auto) 1.4, [place] # (Auto) 0.6, Eos # (Auto) 0.2, Baso # (Auto) 0.01 05/19/18 07:30: Hemoglobin A1c 5.8 05/19/18 07:30: RPR Nonreactive 05/19/18 07:30: TSH 3rd Generation 1.13 05/19/18 07:30: Sodium 139, Potassium 4.5, Chloride 103, Carbon Dioxide 30, Anion Gap 11, BUN 17, Creatinine 1.1, Est GFR ( Amer) > 60, Est GFR (Non- Af Amer) > 60, Random Glucose 94, Fasting Glucose 94, Calcium 9.1, Triglycerides 45, Cholesterol 162, LDL Cholesterol Direct 75, HDL Cholesterol 53 Vital Signs Temp Pulse Resp BP 05/20/18 07:20 98.0 F 63 20 126/82 05/19/18 16:00 66 131/84 05/19/18 07:11 97.7 F 67 20 122/76 05/19/18 01:38 18 DSM 5 Symptoms Update: shortly patient is 32-year-old Male with previous psychiatric history of psychosis, patient was recently discharged from this psychiatric inpatient unit less than a week ago, not known previous suicidal attempts, pt brought himself to the hospital or the leg pain, initially was admitted on the medical side, got IV antibiotics, was medically cleared, patient presented to be as organized, psychotic, had impression that some chips were inserted in his brain, collateral information were obtained from patient aunt, patient was self isolative, had feeling that his uncle did woodu on him, patient also had impression that cameras are monitoring him, patient required further evaluation and stabilization into the psychiatric inpatient unit, patient was transferred in 05/18/2018, transfer was uneventful. patient was seen today next to the nursing station, pt presented to be brighter, less psychotic. pt was more receptive to learn about psychosis, pt was more rational. in regards of pt's statements that chips were implanted into his head pt said "my uncle said so, I believed", pt also is aware that nobody was poisoning him in the hospital. patient is odd, but more organized, logical. so far patient tolerates medications well, no side effects observed or reported, aims 0, no EPS. as per surgical team patient needs to ambulate using a wheelchair for the next 7 days because of the food poorly healing. as per podiatry team, sutures will be removed tomorrow, as per medical team pt needs to continue antibiotics for 4days. Impression: Schizophrenia form Delusional disorder Rule out schizophrenia Medication Change: No Medical Record Reviewed: Yes Mental Status Examination - Cognitive Function Orientation: Person, Place, Situation Memory: Intact Attention: Poor (Some improvement) Concentration: Poor (some improvement) Association: Loose (baseline) Fund of Knowledge: Poor - Mood Mood: Neutral - Affect Affect: Flat - Formal Thought Process Formal Thought Process: Delusions ( baseline), Paranoia (improved), Loosening of associations (bbaseline), Circumstantial - Suicidal Ideation Suicidal Ideation: No - Homicidal Ideation Homicidal Ideation: No Goal/Treatment Plan - Goal/Treatment Plan Need for Continued Stay: Remain at risks for inpatient hospitalization, Severe depression anxiety, Discharge may exacerbated symptoms, Severe functional impairment Progress Toward Problem(s) and Goals/Treatment Plan: Milieu/structure/supportive therapy Medical consult appreciated, see medical team note for more detailed info patient is on antibiotics for wound infection Neurology follow-up appreciated SW consultation for discharge plan and social issues Med management Risperdal 2mg amhs for psychosis cogentin 0.5 mg twice a day EPS prophylaxis xanax 0.5 mg twice a day for anxiety Depakote for headaches as well as mood stabilization aantibiotic seems to be continued for next 4 days collateral information from aunt appreciated, please see sr. social media & mobile manager notes for more detailed information Family involvement Follow up on labs Will monitor closely Pt was educated about risk/benefits and alternatives of medications, coping strategies (safety plan, suicide prevention), relapse prevention, importance of follow up with psychiatrist and therapist, stay away from drugs/alcohol/smoking physical therapy evaluated patient 05/22/18 Estimated Date of D/C: 05/25/18
[2018-05-25 07:32] VITALS: BP 132/77; PULSE 71; RESP 18; TEMP 97.5
[2018-05-25] MEDS: Divalproex 500 mg DR(BID formulation) PO SCH (09:01)
[2018-05-25] MEDS: Alum-Mag Hydrox-Simethicone Susp (30 mL) PO PRN (09:01)
--- NOTE | 2018-05-25 12:55 | CP.PCM.PN ---
Subjective - Date & Time of Evaluation Date of Evaluation: 05/25/18 Time of Evaluation: 12:51 - Subjective Subjective: Podiatry Progress Note for Dr. Bunch 32 yo male patient seen and evaluated this morning for left foot repair laceration secondary to stepping on glass. No acute events overnight. Patient denies any pain to laceration site. He continues to remain NWB with the use of a wheelchair. No other pedal complaints at this time. Denies N/V/F/SOB/CP Objective - Vital Signs/Intake and Output Vital Signs (last 24 hours): Temp Pulse Resp BP Pulse Ox 97.5 F L 71 18 132/77 05/25/18 07:00 05/25/18 07:00 05/25/18 07:00 05/25/18 07:00 - Medications Medications: Current Medications Acetaminophen (Tylenol 325mg Tab) 650 mg PO Q6H PRN PRN Reason: Pain, Mild (1-3) Last Admin: 05/25/18 09:05 Dose: 650 mg Al Hydrox/Mg Hydrox/Simethicone (Maalox Plus 30 Ml) 30 ml PO DAILY PRN PRN Reason: Dyspepsia Last Admin: 05/25/18 09:01 Dose: 30 ml Albuterol (Ventolin Hfa 90 Mcg/Actuation (8 G)) 2 puff IH [id number] PRN PRN Reason: Shortness of Breath Last Admin: 05/21/18 22:29 Dose: 2 inhaler Alprazolam (Xanax) 0.5 mg PO BID PRN; Protocol PRN Reason: Anxiety Last Admin: 05/25/18 09:04 Dose: 0.5 mg Benztropine Mesylate (Cogentin) 0.5 mg PO [facility] Last Admin: 05/25/18 09:02 Dose: 0.5 mg Cephalexin Monohydrate (Keflex) 500 mg PO BID [facility]; Protocol Last Admin: 05/25/18 09:01 Dose: 500 mg Divalproex Sodium (Depakote Dr(*Bid*)) 500 mg PO BID [facility] Last Admin: 05/25/18 09:01 Dose: 500 mg Magnesium Hydroxide (Milk Of Magnesia) 30 ml PO DAILY PRN PRN Reason: Constipation Risperidone (Risperdal Tab) 2 mg PO [facility]; Protocol Last Admin: 05/25/18 09:01 Dose: 2 mg Sodium Chloride ([place] Nasal [place]) 0 ml NS Q4H PRN PRN Reason: Nasal congestion Tramadol HCl (Ultram) 50 mg PO Q6 PRN PRN Reason: Pain, moderate (4-7) Last Admin: 05/24/18 21:08 Dose: 50 mg Zaleplon (Sonata) 5 mg PO HS PRN PRN Reason: Insomnia Last Admin: 05/24/18 22:32 Dose: 5 mg Ziprasidone (Geodon Cap) 20 mg PO BID PRN; Protocol PRN Reason: Agitation Last Admin: 05/25/18 03:34 Dose: 20 mg Ziprasidone (Geodon Inj) 20 mg IM BID PRN; Protocol PRN Reason: Agitation - Labs Labs: 05/19/18 07:30 05/19/18 07:30 - Constitutional Appears: Well, Non-toxic, No Acute Distress - Head Exam Head Exam: ATRAUMATIC, NORMOCEPHALIC - Extremities Exam Additional comments: LLE focused exam: Vasc: DP and PT pulses 2/4, TG WNL, cap refill <3 seconds to all digits, minimal nonpitting edema noted to medial arch Ortho: No tenderness to palpation of laceration site upon dressing change Neuro: gross and protective sensation intact Derm: intact sutures to the medial arch, no drainage present, erythema resolved, no malodor, no dehiscence, no clinical signs of infection. Small callus formation at the apect of suture site. - Neurological Exam Neurological Exam: Alert, Awake, Oriented x3 - Psychiatric Exam Psychiatric exam: Normal Affect, Normal Mood Assessment and Plan - Assessment and Plan (Free Text) Assessment: 32 yo male with left foot repaired laceration secondary to stepping on glass Plan: Patient seen and evaluated, discussed with Dr. Bunch Vital signs stable, WBC 5.6 L foot XR (05/17): ST swelling w/o acute articular and osseous abnormality Continue course of abx - Keflex 500mg PO BID Sutures removed from laceration site, steri strips applied. Dressed with DSD Patient to remain NWB to left lower extremity, upon discharge patient to continue with the use of crutches Podiatry will continue to follow while in house, upon D/C follow up with Dr. Crews in office or on Friday in wound care center
== END 2018-05-25 15:20 | disposition home or self-care (01) | DRG 430 ==
LOC: PSYC 18:50 → ERH 05-24 21:59 → PSYC 05-24 22:01
PROVIDERS: ADMIT Psychiatry & Neurology Psychiatry; ATTEND Psychiatry & Neurology Psychiatry
PROC: GZ3ZZZZ Medication Management (ICD-10-PCS; principal; 2018-05-18)
DX: F20.81 Schizophreniform disorder (principal); F41.9 Anxiety disorder, unspecified; R45.1 Restlessness and agitation; R51 Headache; J45.909 Unspecified asthma, uncomplicated; S91.312D Laceration without foreign body, left foot, subsequent encounter; W25.XXXD Contact with sharp glass, subsequent encounter

== ENCOUNTER 2018-05-29 03:00 | Emergency (ER) | payer MEDICAID, MEDICARE ==
[2018-05-29 03:23] VITALS: BMI 29.0
[2018-05-29] MEDS ORDERED: Vancomycin 1gm in NS 250ml 1 GM/250 ML BAG IVPB STA (03:27)
[2018-05-29] MEDS ORDERED: cefTRIAXone 1 gm 1 GM/100 ML BAG IVPB STA (03:27)
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
[2018-05-29 04:08] VITALS: BP 140/97; PULSE 58; RESP 18; O2SAT 100
[2018-05-29 04:20] LABS: BASO # 0.01 K/mm3 (0.0-2.0); BASO % 0.1 % (0.0-3.0); EOS # 0.3 (0.0-0.7); EOS % 3.5 % (1.5-5.0); GRAN # 6.13 (1.4-6.5); GRAN % 70.5 % (50.0-68.0); HEMOGLOBIN 12.3 g/dL (14.0-18.0); LYMPH # 1.8 (1.2-3.4); LYMPH % 20.5 % (22.0-35.0); MEAN CELL VOLUME 76.1 fl (80.0-105.0); MEAN CORPUSCULAR HEMOGLOBIN 24.9 pg (25.0-35.0); MEAN CORPUSCULAR HGB CONC 32.8 g/dl (31.0-37.0); MEAN PLATELET VOLUME 11.5 fl (7.0-11.0); MONO # 0.5 (0.1-0.6); MONO % 5.4 % (1.0-6.0); RBC 4.93 10^6/uL (3.5-6.1); RED CELL DISTRIBUTION WIDTH 14.1 % (11.5-14.5); WHITE BLOOD COUNT 8.7 10^3/ul (4.5-11.0)
[2018-05-29 04:25] LABS: INR 1.03; PROTHROMBIN TIME 11.7 SECONDS (9.4-12.5)
[2018-05-29 04:54] LABS: ALB/GLOB RATIO 1.1 (1.1-1.8); ALT/SGPT 29 U/L (7-56); AST/SGOT 33 U/L (17-59); BLOOD UREA NITROGEN 11 mg/dL (7-21); GFR NON-AFRICAN AMERICAN > 60
== END 2018-05-29 05:38 | disposition left against medical advice (07) ==
LOC: ED 03:00 → UNDOADMIN 05:10 → ERH 05:10 → ED 05:38
DX: T81.41XA Infection following a procedure, superficial incisional surgical site, initial encounter (principal); Y84.8 Other medical procedures as the cause of abnormal reaction of the patient, or of later complication, without mention of misadventure at the time of the procedure
CPT/HCPCS: 80053; 85025; 85610; 85730; 87040; 87070; 87181; 96365; 96375; 99284; J0696; J2060

== ENCOUNTER 2018-05-30 19:43 | Observation (INO) | payer MEDICAID, MEDICARE ==
[2018-05-30 19:43] VITALS: BMI 29.0
[2018-05-30] MEDS ORDERED: Vancomycin 1gm in NS 250ml 1 GM/250 ML BAG IVPB STA (20:18)
[2018-05-30] MEDS ORDERED: cefTRIAXone 1 gm 1 GM/100 ML BAG IVPB STA (20:18)
[2018-05-30 20:57] LABS: BASO # 0.02 K/mm3 (0.0-2.0); BASO % 0.3 % (0.0-3.0); EOS # 0.3 (0.0-0.7); EOS % 3.2 % (1.5-5.0); GRAN # 5.08 (1.4-6.5); GRAN % 65.9 % (50.0-68.0); HEMOGLOBIN 12.7 g/dL (14.0-18.0); LYMPH # 1.8 (1.2-3.4); LYMPH % 23.6 % (22.0-35.0); MEAN CELL VOLUME 76.8 fl (80.0-105.0); MEAN CORPUSCULAR HEMOGLOBIN 25.2 pg (25.0-35.0); MEAN CORPUSCULAR HGB CONC 32.8 g/dl (31.0-37.0); MEAN PLATELET VOLUME 11.9 fl (7.0-11.0); MONO # 0.5 (0.1-0.6); RBC 5.04 10^6/uL (3.5-6.1); RED CELL DISTRIBUTION WIDTH 14.2 % (11.5-14.5); WHITE BLOOD COUNT 7.7 10^3/ul (4.5-11.0)
[2018-05-30 21:29] LABS: ALB/GLOB RATIO 1.1 (1.1-1.8); ALBUMIN 4.1 g/dL (3.0-4.8); ALT/SGPT 30 U/L (7-56); AST/SGOT 36 U/L (17-59); BLOOD UREA NITROGEN 13 mg/dL (7-21); CALCIUM 8.8 mg/dL (8.4-10.5); GFR NON-AFRICAN AMERICAN > 60
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
[2018-05-31 08:22] LABS: HEMOGLOBIN 11.6 g/dL (14.0-18.0); MEAN CELL VOLUME 76.6 fl (80.0-105.0); MEAN CORPUSCULAR HEMOGLOBIN 24.5 pg (25.0-35.0); MEAN PLATELET VOLUME 11.5 fl (7.0-11.0); RBC 4.74 10^6/uL (3.5-6.1); RED CELL DISTRIBUTION WIDTH 14.1 % (11.5-14.5); WHITE BLOOD COUNT 6.2 10^3/ul (4.5-11.0)
[2018-05-31 08:37] LABS: BLOOD UREA NITROGEN 13 mg/dL (7-21); CALCIUM 8.6 mg/dL (8.4-10.5); GFR NON-AFRICAN AMERICAN > 60
[2018-05-31] MEDS: Divalproex 500 mg DR(BID formulation) PO SCH ×2 (09:26→17:30)
[2018-05-31] MEDS: Vancomycin 1gm in NS 250ml 1 GM/250 ML BAG IVPB SCH ×2 (09:27→22:29)
--- NOTE | 2018-05-31 12:43 | RAD ---
Date of service: 05/31/2018 PROCEDURE: Left Ankle Radiographs. HISTORY: r/o osteomyelitis of left ankle COMPARISON: None FINDINGS: BONES: Normal. No fracture. JOINTS: Normal. No osteoarthritis. Ankle mortise maintained. Talar dome intact SOFT TISSUES: Normal. OTHER FINDINGS: None. IMPRESSION: Normal left ankle radiographs.
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
[2018-05-31] MEDS ORDERED: Iohexol 350 MG/100 ML VIAL ONE (19:51)
[2018-05-31] MEDS ORDERED: cefTRIAXone 1 gm 1 GM/100 ML BAG IVPB SCH (22:00)
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
[2018-06-01 07:17] LABS: BASO # 0.02 K/mm3 (0.0-2.0); BASO % 0.3 % (0.0-3.0); EOS # 0.3 (0.0-0.7); EOS % 4.7 % (1.5-5.0); GRAN # 4.31 (1.4-6.5); GRAN % 59.7 % (50.0-68.0); HEMOGLOBIN 11.5 g/dL (14.0-18.0); LYMPH % 27.3 % (22.0-35.0); MEAN CELL VOLUME 76.3 fl (80.0-105.0); MEAN CORPUSCULAR HEMOGLOBIN 24.5 pg (25.0-35.0); MEAN CORPUSCULAR HGB CONC 32.1 g/dl (31.0-37.0); MEAN PLATELET VOLUME 11.5 fl (7.0-11.0); MONO # 0.6 (0.1-0.6); RBC 4.69 10^6/uL (3.5-6.1); RED CELL DISTRIBUTION WIDTH 14.2 % (11.5-14.5); WHITE BLOOD COUNT 7.2 10^3/ul (4.5-11.0)
[2018-06-01 07:44] LABS: ALBUMIN 3.5 g/dL (3.0-4.8); ALT/SGPT 24 U/L (7-56); AST/SGOT 27 U/L (17-59); BLOOD UREA NITROGEN 14 mg/dL (7-21); CALCIUM 8.9 mg/dL (8.4-10.5); GFR NON-AFRICAN AMERICAN > 60
[2018-06-01 09:00] VITALS: BP 111/71; PULSE 50; RESP 20; TEMP 97.8; O2SAT 99
[2018-06-01] MEDS: Vancomycin 1gm in NS 250ml 1 GM/250 ML BAG IVPB SCH (09:16)
[2018-06-01] MEDS: Divalproex 500 mg DR(BID formulation) PO SCH (09:29)
--- NOTE | 2018-06-01 11:02 | CT ---
Date of service: 05/31/2018 PROCEDURE: CT of the left lower extremity with contrast HISTORY: left foot infection COMPARISON: TECHNIQUE: Contrast dose: 100 cc of Omni 350 Radiation dose: Total exam DLP = 468 mGy-cm. This CT exam was performed using one or more of the following dose reduction techniques: Automated exposure control, adjustment of the mA and/or kV according to patient size, and/or use of iterative reconstruction technique. FINDINGS: There is subcutaneous soft tissue swelling especially along the medial side of the foot. There are no bony abnormalities seen. There is no focal abscess. There are no enhancing lesions. The report concurs with the preliminary [facility] report IMPRESSION: No bony abnormality seen
--- NOTE | 2018-06-01 11:33 | CP.PCM.PN ---
Subjective - Date & Time of Evaluation Date of Evaluation: 06/01/18 Time of Evaluation: 11:28 - Subjective Subjective: Podiatry consult note for Dr. Bunch: 32 yo male with R foot pain with healed L foot laceration s/p stepping on glass (05/08/18). Patient is resting in bed comfortably and reports minimal pain to his L midfoot. He denies any acute events overnight. Denies N/V/F/SOB. Objective - Vital Signs/Intake and Output Vital Signs (last 24 hours): Temp Pulse Resp BP Pulse Ox 97.8 F 50 L 20 111/71 99 06/01/18 06:00 06/01/18 06:00 06/01/18 06:00 06/01/18 06:00 06/01/18 06:00 Intake and Output: 06/01/18 06/01/18 06:59 18:59 Intake Total 600 Balance 600 - Medications Medications: Current Medications Acetaminophen (Tylenol 325mg Tab) 650 mg PO Q6H PRN PRN Reason: Fever >100.4 F Last Admin: 05/31/18 01:27 Dose: 650 mg Alprazolam (Xanax) 0.5 mg PO BID BONNY; Protocol Last Admin: 06/01/18 09:16 Dose: 0.5 mg Diphenhydramine HCl (Benadryl) 25 mg PO Q6 PRN PRN Reason: Allergy symptoms Last Admin: 05/31/18 21:42 Dose: 25 mg Divalproex Sodium (Depakote Dr(*Bid*)) 500 mg PO BID BONNY Last Admin: 06/01/18 09:29 Dose: Not Given Heparin Sodium (Porcine) (Heparin) 5,000 units SC Q12 BONNY; Protocol Last Admin: 06/01/18 09:16 Dose: 5,000 units Ceftriaxone Sodium (Rocephin 1 Gram Ivpb) 1 gm in 100 mls @ 100 mls/hr IVPB Q24H BONNY; Protocol Last Admin: 05/31/18 21:44 Dose: 100 mls/hr Vancomycin HCl (Vancomycin 1gm) 1 gm in 250 mls @ 167 mls/hr IVPB Q12H BONNY; Protocol Last Admin: 06/01/18 09:16 Dose: 167 mls/hr Ketorolac Tromethamine (Toradol) 15 mg IVP Q6H PRN PRN Reason: Pain, moderate (4-7) Ketorolac Tromethamine (Toradol) 30 mg IVP Q6H PRN PRN Reason: Pain, severe (8-10) Last Admin: 06/01/18 09:34 Dose: 30 mg Zaleplon (Sonata) 5 mg PO HS PRN PRN Reason: Insomnia Last Admin: 05/31/18 21:43 Dose: 5 mg - Labs Labs: 06/01/18 06:25 06/01/18 06:25 - Constitutional Appears: Well, Non-toxic, No Acute Distress - Head Exam Head Exam: ATRAUMATIC, NORMOCEPHALIC - Extremities Exam Additional comments: LLE exam: Vascular: pulses are palpable, Cft <3 secs x5, TG warm to warm, mild edema noted to plantar arch of L foot Derm: Closed previous laceration noted on the medial aspect of the right midfoot, with hyperkeratotic scab over it. Small dehiscence noted to apex of healed laceration site measuring approximately .[id number], no drainage noted upon expression, no malodor, no clinical signs of infection, no fluctuance noted Ortho: Minimal pain upon palpation surrounding the laceration site Neuro: Gross and protective sensation intact - Neurological Exam Neurological Exam: Alert, Awake, Oriented x3 - Psychiatric Exam Psychiatric exam: Normal Affect, Normal Mood Assessment and Plan - Assessment and Plan (Free Text) Assessment: 32 yo male seen and evaluated for pain secondary to previous laceration site on the L midfoot Plan: Patient seen and evaluated, plan discussed in detail with Dr. Bunch Afebrile, WBC 7.2 Local wound care: plantar arch dressed with Optifoam Continue IV antibiotics per ID reccs Podiatry will continue to follow while in house Pending D/C patient to follow up with Dr. Crews in wound care center
--- NOTE | 2018-06-01 17:42 | CP.PCM.DIS ---
<Tracie Sinclair - Last Filed: 06/01/18 17:35> Provider - Provider Date of Admission: 05/30/18 22:11 Attending physician: Waqar Jesus MD Consults: Dr. Cunha Time Spent in preparation of Discharge (in minutes): 45 Hospital Course - Lab Results Lab Results: Micro Results 05/30/18 20:45 Blood Blood Culture - Preliminary NO GROWTH AFTER 24 HOURS 05/30/18 20:15 Blood Blood Culture - Preliminary NO GROWTH AFTER 24 HOURS 05/30/18 20:49 Foot - Left Gram Stain - Final Most Recent Lab Values WBC 7.2 10^3/ul (4.5-11.0) 06/01/18 06:25 RBC 4.69 10^6/uL (3.5-6.1) 06/01/18 06:25 Hgb 11.5 g/dL (14.0-18.0) L 06/01/18 06:25 Hct 35.8 % (42.0-52.0) L 06/01/18 06:25 MCV 76.3 fl (80.0-105.0) L 06/01/18 06:25 MCH 24.5 pg (25.0-35.0) L 06/01/18 06:25 MCHC 32.1 g/dl (31.0-37.0) 06/01/18 06:25 RDW 14.2 % (11.5-14.5) 06/01/18 06:25 Plt Count 197 10^3/uL (120.0-450.0) 06/01/18 06:25 MPV 11.5 fl (7.0-11.0) H 06/01/18 06:25 Gran % 59.7 % (50.0-68.0) 06/01/18 06:25 Lymph % (Auto) 27.3 % (22.0-35.0) 06/01/18 06:25 Gage % (Auto) 8.0 % (1.0-6.0) H 06/01/18 06:25 Eos % (Auto) 4.7 % (1.5-5.0) 06/01/18 06:25 Baso % (Auto) 0.3 % (0.0-3.0) 06/01/18 06:25 Gran # 4.31 (1.4-6.5) 06/01/18 06:25 Lymph # (Auto) 2.0 (1.2-3.4) 06/01/18 06:25 Gage # (Auto) 0.6 (0.1-0.6) 06/01/18 06:25 Eos # (Auto) 0.3 (0.0-0.7) 06/01/18 06:25 Baso # (Auto) 0.02 K/mm3 (0.0-2.0) 06/01/18 06:25 ESR 7 mm/hr (0.0-15.0) 05/30/18 20:30 Sodium 141 mmol/L (132-148) 06/01/18 06:25 Potassium 4.8 mmol/L (3.6-5.0) 06/01/18 06:25 Chloride 105 mmol/L (98-107) 06/01/18 06:25 Carbon Dioxide 31 mmol/L (21-33) 06/01/18 06:25 Anion Gap 10 (10-20) 06/01/18 06:25 BUN 14 mg/dL (7-21) 06/01/18 06:25 Creatinine 1.2 mg/dl (0.8-1.5) 06/01/18 06:25 Est GFR ( Amer) > 60 06/01/18 06:25 Est GFR (Non-Af Amer) > 60 06/01/18 06:25 Random Glucose 91 mg/dL (70-110) 06/01/18 06:25 Calcium 8.9 mg/dL (8.4-10.5) 06/01/18 06:25 Total Bilirubin 0.2 mg/dL (0.2-1.3) 06/01/18 06:25 AST 27 U/L (17-59) 06/01/18 06:25 ALT 24 U/L (7-56) 06/01/18 06:25 Alkaline Phosphatase 70 U/L (38-126) 06/01/18 06:25 C-Reactive Protein < 5.00 mg/L (0.0-9.9) 05/31/18 07:00 Total Protein 6.8 g/dL (5.8-8.3) 06/01/18 06:25 Albumin 3.5 g/dL (3.0-4.8) 06/01/18 06:25 Globulin 3.3 gm/dL 06/01/18 06:25 Albumin/Globulin Ratio 1.0 (1.1-1.8) L 06/01/18 06:25 - Hospital Course Hospital Course: Upon Admission Patient is a 32 y/o M with a PMH of asthma, anxiety, non-specified psychosis, and medication non-compliance who presents to the ED on 05/30 complaining of left foot pain with foot laceration s/p stepping on glass on 05-08-18. In the ED, vital signs are stable, no imaging was done, patient received ativan x1, ceftriaxone x1, and vancomycin x1 doses. Patient had previously went to the hospital for this complaint and was given oral antibiotics (keflex) upon discharge. However, upon interview, patient has not been compliant with his antibiotic medication. He states he has been using percocet for pain control, which has been helping. He is able to walk on the foot. Patient denies any outpatient followups and does not see a PMD. [place] [facility] for worsening pain and swelling at the left foot, however, patient left AMA. Today, patient has returned to the ED for the same complaint. He says that today his pain is cramping in nature and rated 9.6/10 on pain scale. Patient endorses numbness and tingling at the left foot with left foot pain. Patient also felt short of breath when he came to the ED, he said it was due to his anxiety. Otherwise denies fevers, chills, lightheadedness, dizziness, chest pain, changes in bowel/bladder. Hospital Course Pt is a 32 yo male come presents to ED complaining of left foot pain s/p laceration 2/2 stepping on glass. Patient was in hospital previously for similar complaints but was admitted to psych unit and transferred to medical floor. Patient came on 05-29 but left AMA. Xray and Lower extremity CT showed no acute findings. Podiatry was consulted. Patient was receiving IV vancomycin and rocephin. Patient will be discharged with oral keflex with followup with Dr. Cunha at wound care clinic. Discharge Plan Patient is stable for discharge to home as per Dr. Norman. Patient will need to followup with Dr. Cunha within 5 days of discharge from hospital at wound care clinic at [facility] on third floor. Patient will continue all home medications as no medication adjustments were made during this admission. Patient will take Keflex 500mg three times a day for the next 3 days. Patient understands the plan as above and agrees. Patient is made aware to return to hospital if symptoms worsen or recur. Disclaimer: Written above is a shortened synopsis of patient's current hospital admission. For full report refer to EMR. Discharge Exam - Head Exam Head Exam: ATRAUMATIC, NORMOCEPHALIC - Eye Exam Eye Exam: EOMI, Normal appearance. absent: Nystagmus, Scleral icterus - ENT Exam ENT Exam: Mucous Membranes Moist - Respiratory Exam Respiratory Exam: NORMAL BREATHING PATTERN. absent: Rhonchi, Wheezes, Respiratory Distress - Cardiovascular Exam Cardiovascular Exam: REGULAR RHYTHM, +S1, +S2. absent: Tachycardia - GI/Abdominal Exam GI & Abdominal Exam: Normal Bowel Sounds, Soft. absent: Distended, Firm, Guarding, Tenderness - Rectal Exam Additional comments: laceration with bandaid in place closed wound well healed no oozing draining or pus noted - Neurological Exam Neurological exam: Alert, CN II-XII Intact, Oriented x3 - Psychiatric Exam Psychiatric exam: Normal Affect, Normal Mood - Skin Skin Exam: Intact, Normal Color Discharge Plan - Discharge Medications Prescriptions: Cephalexin [cephalexin] 500 mg PO TID #15 cap - Follow Up Plan Condition: STABLE Disposition: HOME/ ROUTINE Patient education suggested?: Yes Instructions: Generalized Anxiety Disorder, Bipolar Disorder, Wound Dehiscence, Wound Care Additional Instructions: 1. Patient is stable for discharge to home as meds per Dr. Norman 2. Patient will need to follow up with primary medical doctor within 3-5 days of discharge from hospital. 3. Patient will continue all home medications as prescribed. Patient will be discharged with an oral antibiotic to be taken for the next 5 days: Keflex 500mg three times a day for the next 5 days (starting 10-16 and ending 10-20). 4. Patient will return to hospital if symptoms worsen or recur. 5. Patient understands the plan as above and agrees. <Marco Antonio Norman - Last Filed: 06/02/18 14:32> Provider - Provider Date of Admission: 05/30/18 22:11 Attending physician: Waqar Jesus MD [facility] Course - Lab Results Lab Results: Micro Results 05/30/18 20:49 Foot - Left Gram Stain - Final 05/30/18 20:49 Foot - Left Wound Culture - Preliminary Gram Negative Rhys 05/30/18 20:45 Blood Blood Culture - Preliminary NO GROWTH AFTER 48 HOURS 05/30/18 20:15 Blood Blood Culture - Preliminary NO GROWTH AFTER 48 HOURS Most Recent Lab Values WBC 7.2 10^3/ul (4.5-11.0) 06/01/18 06:25 RBC 4.69 10^6/uL (3.5-6.1) 06/01/18 06:25 Hgb 11.5 g/dL (14.0-18.0) L 06/01/18 06:25 Hct 35.8 % (42.0-52.0) L 06/01/18 06:25 MCV 76.3 fl (80.0-105.0) L 06/01/18 06:25 MCH 24.5 pg (25.0-35.0) L 06/01/18 06:25 MCHC 32.1 g/dl (31.0-37.0) 06/01/18 06:25 RDW 14.2 % (11.5-14.5) 06/01/18 06:25 Plt Count 197 10^3/uL (120.0-450.0) 06/01/18 06:25 MPV 11.5 fl (7.0-11.0) H 06/01/18 06:25 Gran % 59.7 % (50.0-68.0) 06/01/18 06:25 Lymph % (Auto) 27.3 % (22.0-35.0) 06/01/18 06:25 Gage % (Auto) 8.0 % (1.0-6.0) H 06/01/18 06:25 Eos % (Auto) 4.7 % (1.5-5.0) 06/01/18 06:25 Baso % (Auto) 0.3 % (0.0-3.0) 06/01/18 06:25 Gran # 4.31 (1.4-6.5) 06/01/18 06:25 Lymph # (Auto) 2.0 (1.2-3.4) 06/01/18 06:25 Gage # (Auto) 0.6 (0.1-0.6) 06/01/18 06:25 Eos # (Auto) 0.3 (0.0-0.7) 06/01/18 06:25 Baso # (Auto) 0.02 K/mm3 (0.0-2.0) 06/01/18 06:25 ESR 7 mm/hr (0.0-15.0) 05/30/18 20:30 Sodium 141 mmol/L (132-148) 06/01/18 06:25 Potassium 4.8 mmol/L (3.6-5.0) 06/01/18 06:25 Chloride 105 mmol/L (98-107) 06/01/18 06:25 Carbon Dioxide 31 mmol/L (21-33) 06/01/18 06:25 Anion Gap 10 (10-20) 06/01/18 06:25 BUN 14 mg/dL (7-21) 06/01/18 06:25 Creatinine 1.2 mg/dl (0.8-1.5) 06/01/18 06:25 Est GFR ( Amer) > 60 06/01/18 06:25 Est GFR (Non-Af Amer) > 60 06/01/18 06:25 Random Glucose 91 mg/dL (70-110) 06/01/18 06:25 Calcium 8.9 mg/dL (8.4-10.5) 06/01/18 06:25 Total Bilirubin 0.2 mg/dL (0.2-1.3) 06/01/18 06:25 AST 27 U/L (17-59) 06/01/18 06:25 ALT 24 U/L (7-56) 06/01/18 06:25 Alkaline Phosphatase 70 U/L (38-126) 06/01/18 06:25 C-Reactive Protein < 5.00 mg/L (0.0-9.9) 05/31/18 07:00 Total Protein 6.8 g/dL (5.8-8.3) 06/01/18 06:25 Albumin 3.5 g/dL (3.0-4.8) 06/01/18 06:25 Globulin 3.3 gm/dL 06/01/18 06:25 Albumin/Globulin Ratio 1.0 (1.1-1.8) L 06/01/18 06:25 HIV-1 Antibody TEST NOT PERFORMED 05/31/18 07:00 HIV-2 Antibody TEST NOT PERFORMED 05/31/18 07:00 HIV 1&2 Ag/Ab, 4th Gen Nonreactive (Nonreactive) 05/31/18 07:00 Attending/Attestation - Attestation I have personally seen and examined this patient.: Yes I have fully participated in the care of the patient.: Yes I have reviewed all pertinent clinical information, including history, physical exam and plan: Yes Notes (Text): 06/02/18 14:30 Medical record note made by the resident after discussion with my direction and input after the patient was personally seen and examined by me. I have reviewed the chart and agree that the record accurately reflects by personal performance of the history, physical exam, data review, and medical decision-making, in the course for the patient. I have also personally directed the plan of care. 32 y/o M with a PMH of asthma, anxiety, non-specified psychosis, and medication non-compliance who was seen at bedside complaining of left foot pain with foot laceration s/p stepping on glass on 05-08-18. X ray is negative for bony involvement. Redness and swelling has improved. He is ambulatory.He will be discharged home on oral Keflex and will follow up with Podiatry .
--- NOTE | 2018-06-02 05:18 | PN ---
DATE: 06/01/2018 SUBJECTIVE: The patient was seen earlier today in room 570, bed 1. PHYSICAL EXAMINATION: VITAL SIGNS: Temperature is 97, blood pressure is 111/70, respiratory rate of 20. HEENT: Unremarkable. NECK: Supple. LUNGS: Have decreased breath sounds. HEART: Normal S1, S2. ABDOMEN: Soft, nontender. LABORATORY EXAMINATION: Reveals a white count of 7.2, hemoglobin of 11, platelets of 197. Chemistries reveals a BUN of 14, creatinine of 1.1. The patient's foot is noted. The cultures are pending. Blood cultures negative. The patient also had a CAT scan of the lower extremity. No bony abnormalities. No focal abscess on the medial side of the foot. ASSESSMENT AND PLAN: A 32-year-old male seen earlier today, Enterobacter cloacae sensitive to ceftriaxone and Cipro. The patient is being discharged on p.o. antibiotics as discussed. Rodger David MD
== END 2018-06-01 19:21 | disposition home or self-care (01) ==
LOC: ED 19:43 → ERH 22:11 → 5RSO 05-31 00:48
PROVIDERS: ADMIT Internal Medicine; ATTEND Internal Medicine
DX: L03.116 Cellulitis of left lower limb (principal); L02.416 Cutaneous abscess of left lower limb; M79.672 Pain in left foot; S91.312D Laceration without foreign body, left foot, subsequent encounter; W25.XXXD Contact with sharp glass, subsequent encounter; Z91.14 Patient's other noncompliance with medication regimen; Z91.19 Patient's noncompliance with other medical treatment and regimen; J45.909 Unspecified asthma, uncomplicated; F29 Unspecified psychosis not due to a substance or known physiological condition; F41.0 Panic disorder [episodic paroxysmal anxiety]; G47.00 Insomnia, unspecified
CPT/HCPCS: 36415; 73610; 73701; 80048; 80053; 85025; 85027; 85651; 86140; 87040; 87070; 87389; 96374; 99284; G0378; J0696; J1644; J1885; J2060; Q9967

== ENCOUNTER 2018-06-03 01:06 | Emergency (ER) | payer MEDICAID ==
[2018-06-03 01:06] VITALS: BMI 29.0
[2018-06-03 01:39] VITALS: TEMP 98.2
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
[2018-06-03 04:20] VITALS: BP 131/75; PULSE 67; RESP 18; O2SAT 100
== END 2018-06-03 02:15 | disposition home or self-care (01) ==
LOC: ED 01:06
DX: L73.0 Acne keloid (principal)

== ENCOUNTER 2018-06-04 06:19 | Emergency (ER) | payer MEDICAID ==
[2018-06-04 06:21] VITALS: BMI 29.0
[2018-06-04 06:34] VITALS: TEMP 97.8
[2018-06-04 07:04] LABS: URINE BILIRUBIN NEGATIVE (NEGATIVE); URINE BLOOD NEGATIVE (NEGATIVE); URINE GLUCOSE (UA) NEGATIVE (NEGATIVE); URINE LEUKOCYTE ESTERASE NEGATIVE Leu/uL (NEGATIVE); URINE PROTEIN NEGATIVE mg/dL (<30 mg/dL); URINE UROBILINOGEN 0.2 E.U./dL (<1 E.U./dL)
[2018-06-04 07:05] LABS: URINE APPEARANCE CLEAR (CLEAR); URINE COLOR YELLOW (YELLOW)
[2018-06-04 07:39] VITALS: BP 124/82; PULSE 88; RESP 14; O2SAT 100
[2018-06-04 07:45] LABS: BARBITURATES, UR NEGATIVE (NEGATIVE); BENZODIAZEPINES, UR POSITIVE (NEGATIVE); OPIATES, UR NEGATIVE (NEGATIVE); PHENCYCLIDINE, UR NEGATIVE (NEGATIVE)
--- NOTE | 2018-06-10 13:52 | ED PDOC ---
Physical Exam Vital Signs Temp Pulse Resp BP Pulse Ox 06/04/18 07:36 88 14 124/82 100 06/04/18 06:33 97.8 F 70 18 121/98 H 99 Temperature: Afebrile Blood Pressure: Normal Pulse: Regular Respiratory Rate: Normal Appearance: Positive for: Well-Appearing, Non-Toxic, Comfortable Mental Status: Positive for: Alert and Oriented X 3 Medical Decision Making ED Course and Treatment: Signout received from Dr. Quezada with pending disposition. 06/04/18 07:30 Patient reevaluated with no somatic complaints at this time. He is advised to follow up with his PCP. He is stable for discharge. - Lab Interpretations Microbiology Results: Microbiology Results 06/04/18 06:37 Urine Urine Culture - Final No Growth (<1,000 CFU/ML) Lab Results: Lab Results 06/04/18 06:37: Urine Color Yellow, Urine Appearance Clear, Urine pH 6.0, Ur Specific [place] 1.020, Urine Protein Negative, Urine Glucose (UA) Negative, Urine Ketones Trace H, Urine Blood Negative, Urine Nitrate Negative, Urine Bilirubin Negative, Urine Urobilinogen 0.2, Ur Leukocyte Esterase Negative 06/04/18 06:37: Urine Opiates Screen Negative, Urine Methadone Screen Negative, Ur Barbiturates Screen Negative, Ur Phencyclidine Scrn Negative, Ur Amphetamines Screen Negative, U Benzodiazepines Scrn Positive H, U Oth Cocaine Metabols Nega tive, U Cannabinoids Screen Negative Disposition/Present on Arrival - Present on Arrival Any Indicators Present on Arrival: No History of DVT/PE: No History of Uncontrolled Diabetes: No Urinary Catheter: No History of Decub. Ulcer: No History Surgical Site Infection Following: None - Disposition Have Diagnosis and Disposition been Completed?: Yes Diagnosis: Hallucination Disposition: HOME/ ROUTINE Disposition Time: 07:35 Patient Plan: Discharge Condition: STABLE Discharge Instructions (ExitCare): Schizophrenia (DC) Referrals: Allen Lundberg MD [Primary Care Provider] - Follow up with primary Forms: [employer] ([place])
== END 2018-06-04 07:36 | disposition home or self-care (01) ==
LOC: ED 06:19
DX: R44.3 Hallucinations, unspecified (principal)

== ENCOUNTER 2018-06-19 23:41 | Inpatient (IN) | payer MEDICAID, OTHER ==
[2018-06-19 23:41] VITALS: BMI 29.0
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
[2018-06-20 01:18] LABS: BASO # 0.01 K/mm3 (0.0-2.0); BASO % 0.2 % (0.0-3.0); EOS # 0.2 (0.0-0.7); EOS % 2.3 % (1.5-5.0); GRAN # 3.68 (1.4-6.5); GRAN % 55.5 % (50.0-68.0); HEMOGLOBIN 13.4 g/dL (14.0-18.0); LYMPH # 2.4 (1.2-3.4); LYMPH % 36.7 % (22.0-35.0); MEAN CELL VOLUME 76.3 fl (80.0-105.0); MEAN CORPUSCULAR HEMOGLOBIN 24.8 pg (25.0-35.0); MEAN CORPUSCULAR HGB CONC 32.5 g/dl (31.0-37.0); MEAN PLATELET VOLUME 11.7 fl (7.0-11.0); MONO # 0.4 (0.1-0.6); MONO % 5.3 % (1.0-6.0); RBC 5.4 10^6/uL (3.5-6.1); RED CELL DISTRIBUTION WIDTH 13.9 % (11.5-14.5); WHITE BLOOD COUNT 6.6 10^3/uL (4.5-11.0)
[2018-06-20 01:23] LABS: URINE APPEARANCE CLEAR (CLEAR); URINE BILIRUBIN NEGATIVE (NEGATIVE); URINE BLOOD NEGATIVE (NEGATIVE); URINE COLOR LIGHT YELLOW (YELLOW); URINE GLUCOSE (UA) NEGATIVE (NEGATIVE); URINE LEUKOCYTE ESTERASE NEGATIVE Leu/uL (NEGATIVE); URINE PROTEIN NEGATIVE mg/dL (<30 mg/dL); URINE UROBILINOGEN 0.2 E.U./dL (<1 E.U./dL)
[2018-06-20 01:26] LABS: ALB/GLOB RATIO 1.1 (1.1-1.8); ALBUMIN 4.1 g/dL (3.0-4.8); ALT/SGPT 20 U/L (7-56); AST/SGOT 23 U/L (17-59); BLOOD UREA NITROGEN 12 mg/dL (7-21); GFR NON-AFRICAN AMERICAN > 60
[2018-06-20 01:35] LABS: BARBITURATES, UR NEGATIVE (NEGATIVE); BENZODIAZEPINES, UR NEGATIVE (NEGATIVE); OPIATES, UR NEGATIVE (NEGATIVE); PHENCYCLIDINE, UR NEGATIVE (NEGATIVE)
[2018-06-20 03:13] VITALS: O2SAT 100
[2018-06-20] MEDS ORDERED: Albuterol HFA 90 mcg/actuation (8 g) IH PRN (06:25)
--- NOTE | 2018-06-20 06:33 | PCM.BM ---
<Yanet Zavala - Last Filed: 06/20/18 06:30> Treatment Plan Problems - Problems identified on initial assessmt non-compliant with meds Date Initiated: 06/20/18 Time Initiated: 04:00 Assessment reference: NA Status: Active Anxiety Date Initiated: 06/20/18 Time Initiated: 04:00 Assessment reference: NA Status: Active Treatment assets and liabiliti Patient Assests: cooperative, ADL independent, physically healthy, good support system, cognitively intact - Milieu Protocol Milieu Narrative: * group, milieu and supportive therapy * Rispedal 1 mg AMHS, cogentin 0.5 mg AMHS * Depakote 500 mg BID * klonopin 0.5 mg po bid * Sonata 5 mg HS prn:insomnia * Vitals reviewed and noted below: Selected Entries 06/19/18 06/20/18 23:47 03:10 Temperature 98.0 F Pulse Rate 91 H 87 Respiratory 18 17 Rate Blood Pressure 119/79 122/68 O2 Sat by Pulse 97 100 Oximetry Oxygen Delivery Room Air Room Air Method ER LABS AND STUDIES 06/20/18 01:00: Alcohol, Quantitative < 10 06/20/18 01:00: Urine Opiates Screen Negative, Urine Methadone Screen Negative, Ur Barbiturates Screen Negative, Ur Phencyclidine Scrn Negative, Ur Amphetamines Screen Negative, U Benzodiazepines Scrn Negative, U Oth Cocaine Metabols Negative, U Cannabinoids Screen Negative 06/20/18 01:00: Sodium 140, Potassium 4.2, Chloride 104, Carbon Dioxide 29, Anion Gap 11, BUN 12, Creatinine 1.0, Est GFR ( Amer) > 60, Est GFR (Non- Af Amer) > 60, Random Glucose 94, Calcium 9.0, Total Bilirubin 0.2, AST 23, ALT 20, Alkaline Phosphatase 76, Total Protein 7.9, Albumin 4.1, Globulin 3.8, Albumin/Globulin Ratio 1.1 06/20/18 01:00: Urine Color Light yellow, Urine Appearance Clear, Urine pH 7.0, Ur Specific [place] 1.010, Urine Protein Negative, Urine Glucose (UA) Negative, Urine Ketones Negative, Urine Blood Negative, Urine Nitrate Negative, Urine Bilirubin Negative, Urine Urobilinogen 0.2, Ur Leukocyte Esterase Negative 06/20/18 01:00: WBC 6.6, RBC 5.40, Hgb 13.4 L, Hct 41.2 L, MCV 76.3 L, MCH 24.8 L, MCHC 32.5, RDW 13.9, Plt Count 217, MPV 11.7 H, Gran % 55.5, Lymph % (Auto) 36.7 H, [place] % (Auto) 5.3, Eos % (Auto) 2.3, Baso % (Auto) 0.2, Gran # 3.68, Lymph # (Auto) 2.4, [place] # (Auto) 0.4, Eos # (Auto) 0.2, Baso # (Auto) 0.01 * EKG : NSR at 62 bpm, (-) acute ST changes, as read by PA. * PLEASE REFER TO ER REPORT FOR PHYSICAL EXAM AND FINDINGS INCLUDING ROS Discharge/Continuing Care - Treatment Team Participation Patient/Family/SO Statement: * group, milieu and supportive therapy * Rispedal 1 mg AMHS, cogentin 0.5 mg AMHS * Depakote 500 mg BID * klonopin 0.5 mg po bid * Sonata 5 mg HS prn:insomnia * Vitals reviewed and noted below: Selected Entries 06/19/18 06/20/18 23:47 03:10 Temperature 98.0 F Pulse Rate 91 H 87 Respiratory 18 17 Rate Blood Pressure 119/79 122/68 O2 Sat by Pulse 97 100 Oximetry Oxygen Delivery Room Air Room Air Method ER LABS AND STUDIES 06/20/18 01:00: Alcohol, Quantitative < 10 06/20/18 01:00: Urine Opiates Screen Negative, Urine Methadone Screen Negative, Ur Barbiturates Screen Negative, Ur Phencyclidine Scrn Negative, Ur Amphetamines Screen Negative, U Benzodiazepines Scrn Negative, U Oth Cocaine Metabols Negative, U Cannabinoids Screen Negative 06/20/18 01:00: Sodium 140, Potassium 4.2, Chloride 104, Carbon Dioxide 29, Anion Gap 11, BUN 12, Creatinine 1.0, Est GFR ( Amer) > 60, Est GFR (Non- Af Amer) > 60, Random Glucose 94, Calcium 9.0, Total Bilirubin 0.2, AST 23, ALT 20, Alkaline Phosphatase 76, Total Protein 7.9, Albumin 4.1, Globulin 3.8, Albumin/Globulin Ratio 1.1 06/20/18 01:00: Urine Color Light yellow, Urine Appearance Clear, Urine pH 7.0, Ur Specific [place] 1.010, Urine Protein Negative, Urine Glucose (UA) Negative, Urine Ketones Negative, Urine Blood Negative, Urine Nitrate Negative, Urine Bilirubin Negative, Urine Urobilinogen 0.2, Ur Leukocyte Esterase Negative 06/20/18 01:00: WBC 6.6, RBC 5.40, Hgb 13.4 L, Hct 41.2 L, MCV 76.3 L, MCH 24.8 L, MCHC 32.5, RDW 13.9, Plt Count 217, MPV 11.7 H, Gran % 55.5, Lymph % (Auto) 36.7 H, [place] % (Auto) 5.3, Eos % (Auto) 2.3, Baso % (Auto) 0.2, Gran # 3.68, Lymph # (Auto) 2.4, [place] # (Auto) 0.4, Eos # (Auto) 0.2, Baso # (Auto) 0.01 * EKG : NSR at 62 bpm, (-) acute ST changes, as read by PA. * PLEASE REFER TO ER REPORT FOR PHYSICAL EXAM AND FINDINGS INCLUDING ROS <Diana Javed - Last Filed: 06/20/18 10:27> - Diagnosis (1) Schizoaffective disorder Status: Acute Interventions: 06/20/18 10:27 group, milieu and supportive therapy * Rispedal 1 mg AMHS for disorganization, hallucinations and delusions, cogentin 0.5 mg AMHS for EPS prophylaxis * Depakote 500 mg BID, check VPA * klonopin 0.5 mg po bid for anxiety * Sonata 5 mg HS prn:insomnia (2) JOSE (generalized anxiety disorder) Status: Acute Interventions: 06/20/18 10:27 group, milieu and supportive therapy * Rispedal 1 mg AMHS for disorganization, hallucinations and delusions, cogentin 0.5 mg AMHS for EPS prophylaxis * Depakote 500 mg BID, check VPA * klonopin 0.5 mg po bid for anxiety * Sonata 5 mg HS prn:insomnia <Deanne Knowles - Last Filed: 06/23/18 08:37> Family Contact Family involvement: Family/SO is involved Family contact: Patient agrees to contact
[2018-06-20 07:28] VITALS: RESP 20
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
[2018-06-20] MEDS ORDERED: Divalproex 500 mg DR(BID formulation) PO STA (10:51)
[2018-06-20] MEDS ORDERED: Magnesium Hydroxide Susp 30 ml UD PO PRN (11:20)
[2018-06-20] MEDS: Alum-Mag Hydrox-Simethicone Susp (30 mL) PO PRN (11:44)
--- NOTE | 2018-06-20 15:37 | CARD ---
APPROVED REPORT Date of service: 06/20/2018 EKG Measurement Heart [id number] <Conclusion> Normal sinus rhythm with sinus arrhythmia Normal ECG
[2018-06-20] MEDS ORDERED: Divalproex 500 mg DR(BID formulation) PO SCH (22:00)
[2018-06-21] MEDS: Alum-Mag Hydrox-Simethicone Susp (30 mL) PO PRN ×2 (07:10→22:04)
[2018-06-21] MEDS: Divalproex 500 mg DR(BID formulation) PO SCH ×2 (08:53→17:17)
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
[2018-06-21] MEDS ORDERED: Albuterol-Ipratrop 3 mg / 0.5 (3 ml) UD IH PRN (11:46)
[2018-06-21] MEDS ORDERED: DiphenhydrAMINE 12.5 mg/5 ml LIQ UD (5 ml) PO STA (11:46)
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
[2018-06-22] MEDS: Divalproex 500 mg DR(BID formulation) PO SCH ×2 (09:14→17:14)
[2018-06-22] MEDS: Alum-Mag Hydrox-Simethicone Susp (30 mL) PO PRN (09:21)
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
[2018-06-23] MEDS: Divalproex 500 mg DR(BID formulation) PO SCH ×2 (08:10→17:01)
[2018-06-23] MEDS: Alum-Mag Hydrox-Simethicone Susp (30 mL) PO PRN (08:14)
--- NOTE | 2018-06-23 15:55 | PCM.PYCHPN ---
Psychiatric Progress Note - Psychiatric Progress Note Patient seen today, length of contact: 30min Patient Chief Complaint: "I need to go to face outside world" Problems Identified/Issues Discussed: Suicide/ homicide prevention, past psychiatric h/o, current psychiatric sym ptoms, medical problems, risk/benefits and alternatives of medications, medications compliance, coping strategies, substance abuse h/o, relapse prevention, importance of follow up with psychiatrist and therapist, discharge plan. Medical Problems: history of asthma, leg infection Diagnostic Results: 06/20/18 01:00 06/20/18 01:00 Lab Results 06/20/18 01:30: Valproic Acid < 10 L 06/20/18 01:00: Alcohol, Quantitative < 10 06/20/18 01:00: Urine Opiates Screen Negative, Urine Methadone Screen Negative, Ur Barbiturates Screen Negative, Ur Phencyclidine Scrn Negative, Ur Amphetamines Screen Negative, U Benzodiazepines Scrn Negative, U Oth Cocaine Metabols Negative, U Cannabinoids Screen Negative 06/20/18 01:00: Sodium 140, Potassium 4.2, Chloride 104, Carbon Dioxide 29, Anion Gap 11, BUN 12, Creatinine 1.0, Est GFR ( Amer) > 60, Est GFR (Non- Af Amer) > 60, Random Glucose 94, Calcium 9.0, Total Bilirubin 0.2, AST 23, ALT 20, Alkaline Phosphatase 76, Total Protein 7.9, Albumin 4.1, Globulin 3.8, Albumin/Globulin Ratio 1.1 06/20/18 01:00: Urine Color Light yellow, Urine Appearance Clear, Urine pH 7.0, Ur Specific [place] 1.010, Urine Protein Negative, Urine Glucose (UA) Negative, Urine Ketones Negative, Urine Blood Negative, Urine Nitrate Negative, Urine Bilirubin Negative, Urine Urobilinogen 0.2, Ur Leukocyte Esterase Negative 06/20/18 01:00: WBC 6.6, RBC 5.40, Hgb 13.4 L, Hct 41.2 L, MCV 76.3 L, MCH 24.8 L, MCHC 32.5, RDW 13.9, Plt Count 217, MPV 11.7 H, Gran % 55.5, Lymph % (Auto) 36.7 H, [place] % (Auto) 5.3, Eos % (Auto) 2.3, Baso % (Auto) 0.2, Gran # 3.68, Lymph # (Auto) 2.4, [place] # (Auto) 0.4, Eos # (Auto) 0.2, Baso # (Auto) 0.01 Vital Signs Temp Pulse Resp BP Pulse Ox 06/22/18 16:00 84 115/78 06/22/18 07:06 97.9 F 49 L 20 116/81 06/21/18 16:16 64 116/73 06/21/18 07:14 97.2 F L 52 L 20 06/20/18 15:42 45 L 134/94 H 06/20/18 07:26 98.7 F 59 L 20 130/84 06/20/18 03:48 18 06/20/18 03:10 87 17 122/68 100 06/19/18 23:47 98.0 F 91 H 18 119/79 97 DSM 5 Symptoms Update: Patient is a single 32-year-old Male with psychiatric history of Schizophrenia, 2 recent admission to [facility] [place] (04/2018 and 05/2018) who initially presented to the ER because of a panic attack, requesting a refill of xanax. Patient ran out of xanax 5-6 days prior because he was taking this medication more frequently than prescribed. Patient also reported depression, hopelessness and paranoia "something bad is going to happen" and auditory hallucinations of a "man and a woman having a conversation, not instructing me to do anything bad or anything". ppatient was seen at the treatment team meeting, patient presented with marginal personal hygiene, uncombed hair, mild disorganized with his thought process. pt c/o anxiety. Patient denies any SI, paranoia of staff or HI. pt is very superficial, pt said that "I feel very comfortable here around your and your staff support, but I know that I need to go and face outside world", pt said the only problem is "anxiety", pt said that he is willing to be f/u with outpatient program, off note pt was not f/u with outpatient programs. Sachin patient tolerates medications well, no side effects observed or reported, aims 0, no EPS. Impression: schizophrenia to be r/o Medication Change: Yes (Increased xanax) Medical Record Reviewed: Yes Mental Status Examination - Cognitive Function Orientation: Person, Place Attention: Poor Concentration: Poor Association: Loose Fund of Knowledge: Poor - Mood Mood: Depressed, Anxious - Affect Affect: Constricted, Flat - Formal Thought Process Formal Thought Process: Hallucinations, Delusions, Paranoia, Loosening of associations - Suicidal Ideation Suicidal Ideation: No - Homicidal Ideation Homicidal Ideation: No Goal/Treatment Plan - Goal/Treatment Plan Need for Continued Stay: Remain at risks for inpatient hospitalization, Severe depression anxiety, Discharge may exacerbated symptoms, Failed transitioning, Severe functional impairment Progress Toward Problem(s) and Goals/Treatment Plan: group, milieu and supportive therapy * Increased Rispedal to 2 mg AMHS for disorganization, hallucinations and delusions, cogentin 0.5 mg AMHS for EPS prophylaxis * Depakote 500 mg BID, VPA <10 on 06/20/18 * Xanax 1 mg po bid for anxiety * Sonata 5 mg HS prn:insomnia SW consultation for discharge plan and social issues Family involvement Follow up on labs Will monitor closely Pt was educated about risk/benefits and alternatives of medications, coping strategies (safety plan, suicide prevention), relapse prevention, importance of follow up with psychiatrist and therapist, stay away from drugs/alcohol/smoking Estimated Date of D/C: 06/29/18
[2018-06-24] MEDS: Divalproex 500 mg DR(BID formulation) PO SCH ×2 (08:06→17:11)
[2018-06-24] MEDS: Alum-Mag Hydrox-Simethicone Susp (30 mL) PO PRN (08:12)
--- NOTE | 2018-06-24 17:50 | PCM.PYCHPN ---
Psychiatric Progress Note - Psychiatric Progress Note Patient seen today, length of contact: 30min Patient Chief Complaint: "do you thing that I need to stay here till Friday or I can go tomorrow?" Problems Identified/Issues Discussed: Suicide/ homicide prevention, past psychiatric h/o, current psychiatric symptoms, medical problems, risk/benefits and alternatives of medications, medications compliance, coping strategies, substance abuse h/o, relapse prevention, importance of follow up with psychiatrist and therapist, discharge plan. Medical Problems: history of asthma, leg infection Diagnostic Results: 06/20/18 01:00 06/20/18 01:00 Lab Results 06/20/18 01:30: Valproic Acid < 10 L 06/20/18 01:00: Alcohol, Quantitative < 10 06/20/18 01:00: Urine Opiates Screen Negative, Urine Methadone Screen Negative, Ur Barbiturates Screen Negative, Ur Phencyclidine Scrn Negative, Ur Amphetamines Screen Negative, U Benzodiazepines Scrn Negative, U Oth Cocaine Metabols Negative, U Cannabinoids Screen Negative 06/20/18 01:00: Sodium 140, Potassium 4.2, Chloride 104, Carbon Dioxide 29, Anion Gap 11, BUN 12, Creatinine 1.0, Est GFR ( Amer) > 60, Est GFR (Non- Af Amer) > 60, Random Glucose 94, Calcium 9.0, Total Bilirubin 0.2, AST 23, ALT 20, Alkaline Phosphatase 76, Total Protein 7.9, Albumin 4.1, Globulin 3.8, Albumin/Globulin Ratio 1.1 06/20/18 01:00: Urine Color Light yellow, Urine Appearance Clear, Urine pH 7.0, Ur Specific [place] 1.010, Urine Protein Negative, Urine Glucose (UA) Negative, Urine Ketones Negative, Urine Blood Negative, Urine Nitrate Negative, Urine Bilirubin Negative, Urine Urobilinogen 0.2, Ur Leukocyte Esterase Negative 06/20/18 01:00: WBC 6.6, RBC 5.40, Hgb 13.4 L, Hct 41.2 L, MCV 76.3 L, MCH 24.8 L, MCHC 32.5, RDW 13.9, Plt Count 217, MPV 11.7 H, Gran % 55.5, Lymph % (Auto) 36.7 H, Coffee % (Auto) 5.3, Eos % (Auto) 2.3, Baso % (Auto) 0.2, Gran # 3.68, Lymph # (Auto) 2.4, Coffee # (Auto) 0.4, Eos # (Auto) 0.2, Baso # (Auto) 0.01 Vital Signs Temp Pulse Resp BP Pulse Ox 06/22/18 16:00 84 115/78 06/22/18 07:06 97.9 F 49 L 20 116/81 06/21/18 16:16 64 116/73 06/21/18 07:14 97.2 F L 52 L 20 06/20/18 15:42 45 L 134/94 H 06/20/18 07:26 98.7 F 59 L 20 130/84 06/20/18 03:48 18 06/20/18 03:10 87 17 122/68 100 06/19/18 23:47 98.0 F 91 H 18 119/79 97 DSM 5 Symptoms Update: Patient is a single 32-year-old Male with psychiatric history of Schizophrenia, 2 recent admission to [facility] psychiatric unit (04/2018 and 05/2018) who initially presented to the ER because of a panic attack, requesting a refill of xanax. Patient ran out of xanax 5-6 days prior because he was taking this medication more frequently than prescribed. Patient also reported depression, hopelessness and paranoia "something bad is going to happen" and auditory hallucinations of a "man and a woman having a conversation, not instructing me to do anything bad or anything". patient was seen at the treatment team meeting, patient presented with marginal personal hygiene, uncombed hair, mild disorganized with his thought process. pt reported that anxiety is better. Patient denies any SI, paranoia, SI or HI. pt is very superficial, pt said that "I feel very comfortable here around your and your staff support, but I know that I need to go and face outside world", pt said the only problem is "anxiety", pt said that he is willing to be f/u with outpatient program, off note pt was not f/u with outpatient programs. Sachin patient tolerates medications well, no side effects observed or reported, aims 0, no EPS. Impression: schizophrenia to be r/o Medication Change: Yes (Increased xanax) Medical Record Reviewed: Yes Mental Status Examination - Cognitive Function Orientation: Person, Place Attention: Poor Concentration: Poor Association: Loose Fund of Knowledge: Poor - Mood Mood: Depressed, Anxious - Affect Affect: Constricted, Flat - Formal Thought Process Formal Thought Process: Hallucinations, Delusions, Paranoia, Loosening of associations - Suicidal Ideation Suicidal Ideation: No - Homicidal Ideation Homicidal Ideation: No Goal/Treatment Plan - Goal/Treatment Plan Need for Continued Stay: Remain at risks for inpatient hospitalization, Severe depression anxiety, Discharge may exacerbated symptoms, Failed transitioning, Severe functional impairment Progress Toward Problem(s) and Goals/Treatment Plan: group, milieu and supportive therapy Rispedal to 2 mg AMHS for disorganization, hallucinations and delusions cogentin 0.5 mg AMHS for EPS prophylaxis * Depakote 500 mg BID, VPA <10 on 06/20/18 * Xanax 1 mg po bid for anxiety * Sonata 5 mg HS prn:insomnia SW consultation for discharge plan and social issues Family involvement Follow up on labs Will monitor closely Pt was educated about risk/benefits and alternatives of medications, coping strategies (safety plan, suicide prevention), relapse prevention, importance of follow up with psychiatrist and therapist, stay away from drugs/alcohol/smoking tentative discharge either tomorrow or Friday All prescriptions were printed, filed into chart Estimated Date of D/C: 06/26/18
[2018-06-25 07:18] VITALS: BP 121/80; PULSE 58; TEMP 98.2
[2018-06-25] MEDS: Divalproex 500 mg DR(BID formulation) PO SCH (08:37)
[2018-06-25] MEDS: Alum-Mag Hydrox-Simethicone Susp (30 mL) PO PRN (08:38)
--- NOTE | 2018-06-25 13:08 | PCM.PYCHDC ---
Mental Status Examination - Mental Status Examination Orientation: Person, Place, Situation Memory: Intact Mood: Neutral Affect: Broad Speech: Appropriate Attention: WNL Concentration: WNL Association: WNL Fund of Knowledge: WNL Formal Thought Process: No Impairment Description of patient's judgement and insight: Improved and fair I/J Psychotic Thoughts and Behaviors: Patient denies perceptual disturbance including AVH or paranoia, delusions were not elicited Suicidal Ideation: No Current Homicidal Ideation?: No Discharge Summary - Discharge Note Reason for Hospitalization: Patient is a single 32-year-old Male with psychiatric history of Schizophrenia, 2 recent admission to [facility] psychiatric unit (04/2018 and 05/2018) who initially presented to the ER because of a panic attack, requesting a refill of xanax. Patient ran out of xanax 5-6 days prior because he was taking this medication more frequently than prescribed. Patient also reported depression, hopelessness and paranoia "something bad is going to happen" and auditory hallucinations of a "man and a woman having a conversation, not instruc ting me to do anything bad or anything". Psychiatric History (includes Medical, Family, Personal Hx): See HPI Laboratory Data: Laboratory Tests 06/20/18 06/20/18 06/20/18 01:00 01:00 01:00 WBC 6.6 RBC 5.40 Hgb 13.4 L Hct 41.2 L MCV 76.3 L MCH 24.8 L MCHC 32.5 RDW 13.9 Plt Count 217 MPV 11.7 H Gran % 55.5 Lymph % (Auto) 36.7 H [place] % (Auto) 5.3 Eos % (Auto) 2.3 Baso % (Auto) 0.2 Gran # 3.68 Lymph # (Auto) 2.4 [place] # (Auto) 0.4 Eos # (Auto) 0.2 Baso # (Auto) 0.01 Sodium 140 Potassium 4.2 Chloride 104 Carbon Dioxide 29 Anion Gap 11 BUN 12 Creatinine 1.0 Est GFR ( Amer) > 60 Est GFR (Non-Af Amer) > 60 Random Glucose 94 Calcium 9.0 Total Bilirubin 0.2 AST 23 ALT 20 Alkaline Phosphatase 76 Total Protein 7.9 Albumin 4.1 Globulin 3.8 Albumin/Globulin Ratio 1.1 Urine Color Light yellow Urine Appearance Clear Urine pH 7.0 Ur Specific [place] 1.010 Urine Protein Negative Urine Glucose (UA) Negative Urine Ketones Negative Urine Blood Negative Urine Nitrate Negative Urine Bilirubin Negative Urine Urobilinogen 0.2 Ur Leukocyte Esterase Negative Urine Opiates Screen Urine Methadone Screen Ur Barbiturates Screen Valproic Acid Ur Phencyclidine Scrn Ur Amphetamines Screen U Benzodiazepines Scrn U Oth Cocaine Metabols U Cannabinoids Screen Alcohol, Quantitative 06/20/18 06/20/18 06/20/18 01:00 01:00 01:30 WBC RBC Hgb Hct MCV MCH MCHC RDW Plt Count MPV Gran % Lymph % (Auto) [place] % (Auto) Eos % (Auto) Baso % (Auto) Gran # Lymph # (Auto) [place] # (Auto) Eos # (Auto) Baso # (Auto) Sodium Potassium Chloride Carbon Dioxide Anion Gap BUN Creatinine Est GFR ( Amer) Est GFR (Non-Af Amer) Random Glucose Calcium Total Bilirubin AST ALT Alkaline Phosphatase Total Protein Albumin Globulin Albumin/Globulin Ratio Urine Color Urine Appearance Urine pH Ur Specific [place] Urine Protein Urine Glucose (UA) Urine Ketones Urine Blood Urine Nitrate Urine Bilirubin Urine Urobilinogen Ur Leukocyte Esterase Urine Opiates Screen Negative Urine Methadone Screen Negative Ur Barbiturates Screen Negative Valproic Acid < 10 L Ur Phencyclidine Scrn Negative Ur Amphetamines Screen Negative U Benzodiazepines Scrn Negative U Oth Cocaine Metabols Negative U Cannabinoids Screen Negative Alcohol, Quantitative < 10 ER LABS AND STUDIES PLEASE REFER TO ER REPORT FOR PHYSICAL EXAM AND FINDINGS INCLUDING ROS 06/20/18 01:00: Alcohol, Quantitative < 10 06/20/18 01:00: Urine Opiates Screen Negative, Urine Methadone Screen Negative, Ur Barbiturates Screen Negative, Ur Phencyclidine Scrn Negative, Ur Amphetamines Screen Negative, U Benzodiazepines Scrn Negative, U Oth Cocaine Metabols Negative, U Cannabinoids Screen Negative 06/20/18 01:00: Sodium 140, Potassium 4.2, Chloride 104, Carbon Dioxide 29, Anion Gap 11, BUN 12, Creatinine 1.0, Est GFR ( Amer) > 60, Est GFR (Non- Af Amer) > 60, Random Glucose 94, Calcium 9.0, Total Bilirubin 0.2, AST 23, ALT 20, Alkaline Phosphatase 76, Total Protein 7.9, Albumin 4.1, Globulin 3.8, Albumin/Globulin Ratio 1.1 06/20/18 01:00: Urine Color Light yellow, Urine Appearance Clear, Urine pH 7.0, Ur Specific [place] 1.010, Urine Protein Negative, Urine Glucose (UA) Negative, Urine Ketones Negative, Urine Blood Negative, Urine Nitrate Negative, Urine Bilirubin Negative, Urine Urobilinogen 0.2, Ur Leukocyte Esterase Negative 06/20/18 01:00: WBC 6.6, RBC 5.40, Hgb 13.4 L, Hct 41.2 L, MCV 76.3 L, MCH 24.8 L, MCHC 32.5, RDW 13.9, Plt Count 217, MPV 11.7 H, Gran % 55.5, Lymph % (Auto) 36.7 H, [place] % (Auto) 5.3, Eos % (Auto) 2.3, Baso % (Auto) 0.2, Gran # 3.68, Lymph # (Auto) 2.4, [place] # (Auto) 0.4, Eos # (Auto) 0.2, Baso # (Auto) 0.01 EKG : NSR at 62 bpm, (-) acute ST changes, as read by PA. Consultations:: List each consultation separately and include: 1. Reason for request. 2. Findings. 3. Follow-up Consultations: Dr. Shay on 06/21/18 Summary of Hospital Course include:: 1. Description of specific treatment plan utilized for patients during their course of treatmen. 2. Summarize the time- course for resolution of acute symptoms and/or regressed behaviors. 3. Describe issues identified and worked on during hospitalization. 4. Describe medication utilized. 5. Describe medical problems identified and treated. 6. Reassessment of suicide risk Summary of Hospital Course: PER DR. MOORE 06/24/18 Patient is a single 32-year-old Male with psychiatric history of Schizophrenia, 2 recent admission to [facility] psychiatric unit (04/2018 and 05/2018) who initially presented to the ER because of a panic attack, requesting a refill of xanax. Patient ran out of xanax 5-6 days prior because he was taking this medication more frequently than prescribed. Patient also reported depression, hopelessness and paranoia "something bad is going to happen" and auditory hallucinations of a "man and a woman having a conversation, not instructing me to do anything bad or anything". patient was seen at the treatment team meeting, patient presented with marginal personal hygiene, uncombed hair, mild disorganized with his thought process. pt reported that anxiety is better. Patient denies any SI, paranoia, SI or HI. pt is very superficial, pt said that "I feel very comfortable here around your and your staff support, but I know that I need to go and face outside world", pt said the only problem is "anxiety", pt said that he is willing to be f/u with outpatient program, off note pt was not f/u with outpatient programs. Sachin patient tolerates medications well, no side effects observed or reported, aims 0, no EPS. INITIAL ADMISSION ASSESSMENT BY DR. BETTS Patient is a single 32-year-old Male with psychiatric history of Schizophrenia, 2 recent admission to [facility] psychiatric unit (04/2018 and 05/2018) who initially presented to the ER because of a panic attack, requesting a refill of xanax. Patient ran out of xanax 5-6 days prior because he was taking this medication more frequently than prescribed. Patient also reported depression, hopelessness and paranoia "something bad is going to happen" and auditory hallucinations of a "man and a woman having a conversation, not instructing me to do anything bad or anything". Patient was interviewed at bedside. He appears preoccupied and distracted during my questioning. Initially asks me "So is there something in my head?" however becomes unfocused and forgets about the question. He admits to depression, anxiety and hallucinations as described above and states "it is like a crowd, an audience talking all at once". Patient denies any SI, paranoia of staff or HI. He indicates that he was compliant with his psychiatric medications after discharge until running out. He didn't f/u with medical or psychiatric aftercare recommendations. Presently patient has been calm and compliant on the unit. Appears to have decompensated and become psychotic, delusional and depressed again since recent discharge from this unit x3-4 weeks ago. PSYCHIATRIC HISTORY 05/12/18-05/15/18 [facility] Complained of AH, disorganization, felt chip may have been implanted in mouth. Discharged on Risperdal 1 mg HS and depakote 250 mg bid, Sonata 5 mg HS Prn. 05/18/18-05/25/18 [facility] admitted for paranoia, delusion that chips were implanted in head, cameras monitoring him and uncle doing christianity on him. Patient was discharged on: xanax 0.5 mg po bid, cogentin 0.5 mg AMHS, Risperdal 2 mg AMHS, Depakote 500 mg po bid, Sonata 5 mg HS prn. SOCIAL HISTORY Patient resides with aunt and mom. He is single and has no children. Unemployed. Deneis any drug/alcohol or tobacco use. Records indicate that he was arrested in 2008 for domestic violence against his uncle. PER DR. BETTS 06/25/18 DISCHARGE NOTE I interviewed patient in the hallway to assess continued stability for discharge. Patient is alert and well-oriented to month, year and circumstances. Eye contact is good. Patient feels improved and denies any suicidal thoughts or thoughts to harm others. Affect is calm and appropriately reactive, much improved since admission. Patient denies hallucinations and is not responding to internal stimuli. Thought process is clear and coherent. Patient feels comfortable with discharge today and denies any new concerns. Denies acute discomfort or pain. Tolerating medications and denies any issues with them. Delusions and paranoia were not elicited on day of discharge. - Diagnosis (1) Schizoaffective disorder Status: Acute (2) JOSE (generalized anxiety disorder) Status: Acute - Final Diagnosis (DSM 5) Condition upon Discharge: STABLE DSM 5: SCHIZOPHRENIA Disposition: HOME/ ROUTINE Follow-up Treatment Plan: PLEASE REFER TO SW NOTE FOR AFTERCARE INFORMATION. REFER TO NURSING NOTE FOR RX PROVIDED BY DR. MOORE Prescriptions/Medication Reconciliation: ALPRAZolam [Xanax] 1 mg PO BID #30 tab Benztropine [Cogentin] 0.5 mg PO BID #30 tab Divalproex [Depakote DR(*BID*)] 500 mg PO BID #30 tcp risperiDONE [RisperDAL Tab] 2 mg PO AMHS #30 tab Sodium Chloride Nasal [place] [[place] Nasal [place]] 2 ml NS DAILY PRN #1 bottle PRN Reason: Nasal Congestion Zaleplon [Sonata] 5 mg PO HS PRN #14 cap PRN Reason: Insomnia - Smoking Cessation Smoking Cessation Medication prescribed: No
== END 2018-06-25 12:32 | disposition home or self-care (01) | DRG 885 ==
LOC: ED 23:41 → ERH 06-20 02:53 → PSYC 06-20 03:40
PROVIDERS: ADMIT Psychiatry & Neurology Psychiatry; ATTEND Psychiatry & Neurology Psychiatry
DX: F25.9 Schizoaffective disorder, unspecified (principal); J45.901 Unspecified asthma with (acute) exacerbation; F41.1 Generalized anxiety disorder; F41.0 Panic disorder [episodic paroxysmal anxiety]

== ENCOUNTER 2018-07-18 11:48 | Emergency (ER) | payer MEDICAID, OTHER ==
[2018-07-18 11:49] VITALS: BMI 26.6
[2018-07-18 11:58] VITALS: RESP 18
[2018-07-18 12:15] LABS: EOS % 1.3 % (1.5-5.0); GRAN # 4.91 (1.4-6.5); GRAN % 69.8 % (50.0-68.0); HEMOGLOBIN 12.9 g/dL (14.0-18.0); LYMPH % 21.4 % (22.0-35.0); MEAN CORPUSCULAR HEMOGLOBIN 24.4 pg (25.0-35.0); MEAN CORPUSCULAR HGB CONC 32.5 g/dl (31.0-37.0); MEAN PLATELET VOLUME 13.4 fl (7.0-11.0); MONO % 6.5 % (1.0-6.0); RBC 5.29 10^6/uL (3.5-6.1)
[2018-07-18 12:16] LABS: BASO # 0.07 K/mm3 (0.0-2.0); EOS # 0.1 (0.0-0.7); LYMPH # 1.5 (1.2-3.4); MONO # 0.5 (0.1-0.6)
[2018-07-18 12:27] LABS: ACETAMINOPHEN < 10.0 ug/ml (10.0-20.0); SALICYLATE < 1 mg/dL (2.0-20.0)
[2018-07-18 12:42] LABS: ALB/GLOB RATIO 1.1 (1.1-1.8); ALBUMIN 4.2 g/dL (3.0-4.8); ALT/SGPT 23 U/L (7-56); AST/SGOT 23 U/L (17-59); BLOOD UREA NITROGEN 17 mg/dL (7-21); GFR NON-AFRICAN AMERICAN > 60
[2018-07-18 12:55] LABS: BARBITURATES, UR NEGATIVE (NEGATIVE); BENZODIAZEPINES, UR NEGATIVE (NEGATIVE); OPIATES, UR NEGATIVE (NEGATIVE); PHENCYCLIDINE, UR NEGATIVE (NEGATIVE); URINE BILIRUBIN NEGATIVE (NEGATIVE); URINE BLOOD NEGATIVE (NEGATIVE); URINE GLUCOSE (UA) NEGATIVE (NEGATIVE); URINE LEUKOCYTE ESTERASE NEGATIVE Leu/uL (NEGATIVE); URINE PROTEIN NEGATIVE mg/dL (<30 mg/dL); URINE UROBILINOGEN 0.2 E.U./dL (<1 E.U./dL)
[2018-07-18 12:56] LABS: URINE APPEARANCE CLEAR (CLEAR); URINE COLOR YELLOW (YELLOW)
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
[2018-07-18 14:16] VITALS: BP 140/80; PULSE 80; TEMP 98; O2SAT 98
== END 2018-07-18 14:18 | disposition home or self-care (01) ==
LOC: ED 11:48
DX: F31.9 Bipolar disorder, unspecified (principal); F41.1 Generalized anxiety disorder; F20.9 Schizophrenia, unspecified; J45.909 Unspecified asthma, uncomplicated
CPT/HCPCS: 80053; 81003; 83735; 85025; 90791; 99283; G0480

== ENCOUNTER 2018-07-24 12:19 | Inpatient (IN) | payer MEDICAID, OTHER ==
[2018-07-24 12:19] VITALS: BMI 26.6
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
[2018-07-24 13:02] LABS: URINE BILIRUBIN NEGATIVE (NEGATIVE); URINE BLOOD NEGATIVE (NEGATIVE); URINE GLUCOSE (UA) NEGATIVE (NEGATIVE); URINE LEUKOCYTE ESTERASE NEGATIVE Leu/uL (NEGATIVE); URINE PROTEIN NEGATIVE mg/dL (<30 mg/dL); URINE UROBILINOGEN 0.2 E.U./dL (<1 E.U./dL)
[2018-07-24 13:07] VITALS: O2SAT 98
[2018-07-24 13:16] LABS: BASO # 0.01 K/mm3 (0.0-2.0); BASO % 0.1 % (0.0-3.0); EOS # 0.3 (0.0-0.7); EOS % 4.1 % (1.5-5.0); GRAN # 5.03 (1.4-6.5); GRAN % 62.3 % (50.0-68.0); HEMOGLOBIN 13.1 g/dL (14.0-18.0); LYMPH # 2.1 (1.2-3.4); LYMPH % 25.7 % (22.0-35.0); MEAN CELL VOLUME 75.7 fl (80.0-105.0); MEAN CORPUSCULAR HEMOGLOBIN 24.5 pg (25.0-35.0); MEAN CORPUSCULAR HGB CONC 32.4 g/dl (31.0-37.0); MEAN PLATELET VOLUME 11.5 fl (7.0-11.0); MONO # 0.6 (0.1-0.6); MONO % 7.8 % (1.0-6.0); RBC 5.34 10^6/uL (3.5-6.1); RED CELL DISTRIBUTION WIDTH 14.9 % (11.5-14.5); WHITE BLOOD COUNT 8.1 10^3/uL (4.5-11.0)
[2018-07-24 13:27] LABS: BARBITURATES, UR NEGATIVE (NEGATIVE); BENZODIAZEPINES, UR POSITIVE (NEGATIVE); OPIATES, UR NEGATIVE (NEGATIVE); PHENCYCLIDINE, UR NEGATIVE (NEGATIVE)
[2018-07-24 13:27] LABS: ALB/GLOB RATIO 1.1 (1.1-1.8); ALBUMIN 4.2 g/dL (3.0-4.8); ALT/SGPT 33 U/L (7-56); AST/SGOT 24 U/L (17-59); BLOOD UREA NITROGEN 9 mg/dL (7-21); CALCIUM 9.4 mg/dL (8.4-10.5); GFR NON-AFRICAN AMERICAN > 60
[2018-07-24 13:31] LABS: URINE APPEARANCE CLEAR (CLEAR); URINE COLOR YELLOW (YELLOW)
--- NOTE | 2018-07-24 13:53 | RAD ---
Date of service: 07/24/2018 HISTORY: medical clearance, psy eval COMPARISON: No prior. FINDINGS: LUNGS: No active pulmonary disease. PLEURA: No significant pleural effusion identified, no pneumothorax apparent. CARDIOVASCULAR: No aortic atherosclerotic calcification present. Normal cardiac size. No pulmonary vascular congestion. OSSEOUS STRUCTURES: No significant abnormalities. VISUALIZED UPPER ABDOMEN: Normal. OTHER FINDINGS: None. IMPRESSION: No active disease.
--- NOTE | 2018-07-24 16:15 | CARD ---
APPROVED REPORT Date of service: 07/24/2018 EKG Measurement Heart [id number] <Conclusion> Normal sinus rhythm Normal ECG
--- NOTE | 2018-07-24 18:56 | PCM.BM ---
<AnicetoMusa - Last Filed: 07/24/18 19:02> Treatment Plan Problems - Problems identified on initial assessmt ALTERATION IN emotional status Date Initiated: 07/24/18 Time Initiated: 19:00 Assessment reference: HP, NA Status: Active DELUSIONS Assessment reference: HP, NA, Other Status: Active THOUGHT PROCESS ALTERATION Date Initiated: 07/24/18 Assessment reference: HP, NA, Other Status: Active Treatment assets and liabiliti Patient Assests: cooperative, ADL independent, physically healthy, good support system, cognitively intact Patient Liabilities: live alone, substance abuse, other - Milieu Protocol Maintain good personal hygiene: daily Encourage regular showers, daily Remind patient to perform daily oral care, daily Assist patient to perform ADL's Maintain personal safety: daily Educate patient to report safety concerns to staff, daily Monitor environment for contraband/sharps Medication safety: Monitor for expected outcome, potential side effects: daily, Assess barriers to learning: daily, Assess readiness for medication education: daily Discharge/Continuing Care - Education Needs Education Needs: Patient Medication, Patient Diagnosis/Disease Process, Patient Coping Skills, Patient Anger Management skills, Patient Community resources, Patient Activities of Daily Living, Patient Uses of Medical Equipment, Patient Health Practices/Safety, Patient Personal Hygiene/Grooming - Discharge Discharge Criteria: Free of Suicidal thoughts, Free of Homicidal thoughts, Free of paranoid thoughts, Free of agitation <Diana Javed - Last Filed: 07/25/18 10:23> - Diagnosis (1) Schizoaffective disorder Status: Acute Interventions: 07/25/18 10:23 * group, milieu and supportive therapy * Risperdal 2 mg [facility] for disorganization, hallucinations and delusions, cogentin 0.5 mg bid for EPS prophylaxis * Depakote 500 mg [facility], VPA<10 on 07/25/18 * Xanax 0.5 mg po tid prn and vistaril 50 mg po QID prn for anxiety * Sonata 5 mg HS prn:insomnia <Deanne Knowles - Last Filed: 07/27/18 16:36> Family Contact Family involvement: Famliy/SO not involved
[2018-07-25 08:17] LABS: GLUCOSE,FASTING 91 mg/dL (65-110); HDL CHOLESTEROL 78 mg/dL (29-60)
[2018-07-25 08:27] LABS: LDL CHOLESTEROL 78 mg/dL (0-129)
[2018-07-25 08:38] LABS: FREE T4 1.01 ng/dL (0.78-2.19)
[2018-07-25] MEDS: Divalproex 250 mg DR (BID formulation) PO SCH ×2 (09:02→16:26)
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
[2018-07-25] MEDS ORDERED: Alum-Mag Hydrox-Simethicone Susp (30 mL) PO PRN (13:01)
[2018-07-26] MEDS ORDERED: Albuterol-Ipratrop 3 mg / 0.5 (3 ml) UD IH PRN (08:08)
[2018-07-26] MEDS: Divalproex 250 mg DR (BID formulation) PO SCH ×2 (08:20→17:29)
[2018-07-26] MEDS: Fluticasone Nasal 50 mcg/Spray NS SCH (08:22)
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
[2018-07-27] MEDS: Divalproex 250 mg DR (BID formulation) PO SCH ×2 (08:16→16:53)
[2018-07-27] MEDS: Fluticasone Nasal 50 mcg/Spray NS SCH (08:17)
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
[2018-07-27] MEDS: Alum-Mag Hydrox-Simethicone Susp (30 mL) PO PRN (21:18)
[2018-07-28] MEDS: Divalproex 250 mg DR (BID formulation) PO SCH ×2 (09:14→16:44)
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
[2018-07-28] MEDS: Fluticasone Nasal 50 mcg/Spray NS SCH (19:20)
[2018-07-28] MEDS: Alum-Mag Hydrox-Simethicone Susp (30 mL) PO PRN (21:01)
[2018-07-29 07:08] VITALS: TEMP 98.5
[2018-07-29] MEDS: Divalproex 250 mg DR (BID formulation) PO SCH ×2 (09:13→18:18)
[2018-07-29] MEDS: Fluticasone Nasal 50 mcg/Spray NS SCH (09:14)
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
[2018-07-29] MEDS: Alum-Mag Hydrox-Simethicone Susp (30 mL) PO PRN (21:06)
[2018-07-30 06:58] VITALS: RESP 20
[2018-07-30] MEDS: Divalproex 250 mg DR (BID formulation) PO SCH ×2 (08:58→16:37)
[2018-07-30] MEDS: Fluticasone Nasal 50 mcg/Spray NS SCH (08:59)
[2018-07-30] MEDS: Alum-Mag Hydrox-Simethicone Susp (30 mL) PO PRN ×2 (09:57→21:25)
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
[2018-07-31 07:01] VITALS: BP 118/81; PULSE 54
[2018-07-31] MEDS: Fluticasone Nasal 50 mcg/Spray NS SCH (07:03)
[2018-07-31] MEDS: Divalproex 250 mg DR (BID formulation) PO SCH (07:03)
[2018-07-31] MEDS: Alum-Mag Hydrox-Simethicone Susp (30 mL) PO PRN (09:20)
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
== END 2018-07-31 13:50 | disposition home or self-care (01) | DRG 750 ==
LOC: ED 12:19 → ERH 15:14 → PSYC 17:14
PROVIDERS: ADMIT Psychiatry & Neurology Psychiatry; ATTEND Psychiatry & Neurology Psychiatry
PROC: GZ3ZZZZ Medication Management (ICD-10-PCS; principal; 2018-07-25)
DX: F25.9 Schizoaffective disorder, unspecified (principal); Z91.14 Patient's other noncompliance with medication regimen; F41.1 Generalized anxiety disorder; J45.20 Mild intermittent asthma, uncomplicated; Z81.8 Family history of other mental and behavioral disorders

== ENCOUNTER 2018-11-21 00:17 | Inpatient (IN) | payer MEDICAID, OTHER ==
[2018-11-21 00:31] VITALS: BMI 29.8
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
[2018-11-21 01:12] LABS: BASO # 0.01 K/mm3 (0.0-2.0); BASO % 0.1 % (0.0-3.0); EOS # 0.1 (0.0-0.7); LYMPH # 1.9 (1.2-3.4); LYMPH % 23.2 % (22.0-35.0); MEAN CELL VOLUME 70.5 fl (80.0-105.0); MEAN CORPUSCULAR HEMOGLOBIN 22.4 pg (25.0-35.0); MEAN CORPUSCULAR HGB CONC 31.7 g/dl (31.0-37.0); MONO # 0.5 (0.1-0.6); MONO % 5.6 % (1.0-6.0); PLATELET COUNT 212 10^3/uL (120.0-450.0); RBC 4.47 10^6/uL (3.5-6.1); RED CELL DISTRIBUTION WIDTH 16.1 % (11.5-14.5); WHITE BLOOD COUNT 8.3 10^3/uL (4.5-11.0)
[2018-11-21 01:17] LABS: URINE BILIRUBIN NEGATIVE (NEGATIVE); URINE BLOOD NEGATIVE (NEGATIVE); URINE GLUCOSE (UA) NEGATIVE (NEGATIVE); URINE LEUKOCYTE ESTERASE NEGATIVE Leu/uL (NEGATIVE); URINE PROTEIN 30 mg/dL (<30 mg/dL); URINE UROBILINOGEN 0.2 E.U./dL (<1 E.U./dL)
[2018-11-21 01:19] LABS: ACETAMINOPHEN < 10.0 ug/ml (10.0-20.0); SALICYLATE < 1 mg/dL (2.0-20.0)
[2018-11-21 01:20] LABS: ALB/GLOB RATIO 1.2 (1.1-1.8); ALBUMIN 4.1 g/dL (3.0-4.8); ALT/SGPT 17 U/L (7-56); AST/SGOT 35 U/L (17-59); BLOOD UREA NITROGEN 15 mg/dL (7-21); CALCIUM 9.3 mg/dL (8.4-10.5); GFR NON-AFRICAN AMERICAN 58
[2018-11-21 01:33] LABS: URINE COLOR YELLOW (YELLOW)
[2018-11-21 01:34] LABS: URINE APPEARANCE CLEAR (CLEAR)
[2018-11-21 01:35] LABS: URINE BACTERIA OCC /hpf; URINE EPITHELIAL CELLS 0 - 2 /hpf (0-5); URINE RBC 0 - 2 /hpf (0-2); URINE WBC 0 - 2 /hpf (0-6)
[2018-11-21 01:37] LABS: PHENCYCLIDINE, UR NEGATIVE (NEGATIVE)
[2018-11-21 01:46] LABS: BARBITURATES, UR NEGATIVE (NEGATIVE); BENZODIAZEPINES, UR POSITIVE (NEGATIVE); OPIATES, UR NEGATIVE (NEGATIVE)
[2018-11-21] MEDS ORDERED: Magnesium Hydroxide Susp 30 ml UD PO PRN (07:25)
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
[2018-11-21 09:33] LABS: HDL CHOLESTEROL 56 mg/dL (29-60)
[2018-11-21 09:44] LABS: LDL CHOLESTEROL 65 mg/dL (0-129)
[2018-11-21] MEDS ORDERED: DiphenhydrAMINE 50 mg/ml Inj IM PRN (13:43)
[2018-11-21] MEDS: Alum-Mag Hydrox-Simethicone Susp (30 mL) PO PRN (17:06)
--- NOTE | 2018-11-21 21:02 | CARD ---
APPROVED REPORT Date of service: 11/21/2018 EKG Measurement Heart [id number] <Conclusion> Normal sinus rhythm Minimal voltage criteria for LVH, may be normal variant Slight ST elevation diffusely-possibly early repolarization, a normal variant Borderline ECG
[2018-11-21] MEDS ORDERED: Divalproex 500 mg DR(BID formulation) PO SCH (22:00)
[2018-11-22 07:57] LABS: GLUCOSE,FASTING 97 mg/dL (65-110); HDL CHOLESTEROL 49 mg/dL (29-60)
[2018-11-22 08:08] LABS: LDL CHOLESTEROL 73 mg/dL (0-129)
[2018-11-22 08:18] LABS: FREE T4 1.28 ng/dL (0.78-2.19)
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
[2018-11-22 13:10] VITALS: O2SAT 99
[2018-11-22] MEDS: Divalproex 500 mg DR(BID formulation) PO SCH (22:07)
[2018-11-23] MEDS: Divalproex 500 mg DR(BID formulation) PO SCH ×2 (09:45→22:20)
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
[2018-11-24] MEDS: Divalproex 500 mg DR(BID formulation) PO SCH ×2 (09:34→21:04)
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
[2018-11-24] MEDS: Alum-Mag Hydrox-Simethicone Susp (30 mL) PO PRN (22:29)
[2018-11-25 07:12] VITALS: RESP 20
[2018-11-25] MEDS: Divalproex 500 mg DR(BID formulation) PO SCH ×2 (09:24→21:21)
[2018-11-25] MEDS: Alum-Mag Hydrox-Simethicone Susp (30 mL) PO PRN ×2 (09:30→21:24)
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
[2018-11-26] MEDS: Divalproex 500 mg DR(BID formulation) PO SCH ×2 (09:33→21:27)
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
[2018-11-27 07:09] VITALS: BP 121/77; PULSE 80; TEMP 97.8
[2018-11-27] MEDS: Divalproex 500 mg DR(BID formulation) PO SCH (09:49)
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
== END 2018-11-27 14:23 | disposition home or self-care (01) | DRG 750 ==
LOC: ED 00:17 → ERH 06:45 → PSYC 12:12
PROVIDERS: ADMIT Psychiatry & Neurology Psychiatry; ATTEND Psychiatry & Neurology Psychiatry
DX: F20.9 Schizophrenia, unspecified (principal); Z91.14 Patient's other noncompliance with medication regimen; F31.9 Bipolar disorder, unspecified; F41.0 Panic disorder [episodic paroxysmal anxiety]; G47.00 Insomnia, unspecified; J45.909 Unspecified asthma, uncomplicated; Z79.899 Other long term (current) drug therapy; Z87.892 Personal history of anaphylaxis; Z91.013 Allergy to seafood